=== PATIENT | female | born 1955 | race Caucasian/White ===

== ENCOUNTER → 2018-02-12 09:57 | Outpatient (CLI) | payer OTHER, SELFPAY ==
[2018-02-12 13:06] LABS: BUN 15 mg/dL (7-18); Creatinine, Serum 0.74 mg/dL (0.55-1.02); Glucose 100 mg/dL (74-106)
[2018-02-12 13:07] LABS: ALB/GLOB Ratio 1.1 RATIO (0.9-2.4); AST(SGOT) 42 U/L (15-37); Alanine Aminotransfer ALT/SGPT 43 U/L (13-56); Alkaline Phosphatase 62 U/L (45-117); Anion Gap 9 (5-15); BUN/Creat Ratio 20.1 RATIO (10-20); Calcium,Total 8.9 mg/dL (8.5-10.1); Chloride 108 mmol/L (98-107); Cholesterol 122 mg/dL (200); EST Glomerular Filtration Rate 83 mL/min (>60); Est Glom Filt Rate - Afr Amer 101 mL/min (>60); Globulin 3.5 g/dL (2.2-4.2); High Density Lipoprotein 53 mg/dL; Potassium 4.1 mmol/L (3.5-5.1); Protein, Total 7.5 g/dL (6.4-8.2); Sodium Level 143 mmol/L (136-145); Thyroid Stim Hormone (TSH) 1.03 uIU/mL (0.358-3.74); Triglycerides 85 mg/dL; Very Low Density Lipoprotein 17 mg/dL (5-40)
== END ==
PROVIDERS: Family Provider Family Medicine; PCP Family Medicine; Visit Provider Nurse Practitioner Family
DX: E78.5 Hyperlipidemia, unspecified (principal); R61 Generalized hyperhidrosis
CPT/HCPCS: 36415; 80053; 80061; 84443

== ENCOUNTER → 2019-01-04 09:38 | Outpatient (CLI) | payer MEDICARE, SELFPAY ==
[2019-01-04 09:12] VITALS: BMI 30.9
[2019-01-04 12:40] LABS: ALB/GLOB Ratio 1.1 RATIO (0.9-2.4); AST(SGOT) 35 U/L (15-37); Alanine Aminotransfer ALT/SGPT 36 U/L (13-56); Alkaline Phosphatase 67 U/L (45-117); Anion Gap 4 (5-15); BUN 17 mg/dL (7-18); BUN/Creat Ratio 22.8 RATIO (10-20); Calcium,Total 8.7 mg/dL (8.5-10.1); Chloride 108 mmol/L (98-107); Cholesterol 140 mg/dL (200); Creatinine, Serum 0.75 mg/dL (0.55-1.02); EST Glomerular Filtration Rate 83 mL/min (>60); Est Glom Filt Rate - Afr Amer 100 mL/min (>60); Globulin 3.6 g/dL (2.2-4.2); Glucose 105 mg/dL (74-106); High Density Lipoprotein 62 mg/dL; Potassium 4.2 mmol/L (3.5-5.1); Protein, Total 7.6 g/dL (6.4-8.2); Sodium Level 141 mmol/L (136-145); Triglycerides 124 mg/dL; Very Low Density Lipoprotein 25 mg/dL (5-40)
== END ==
PROVIDERS: Family Provider Family Medicine; PCP Family Medicine; Visit Provider Family Medicine
DX: E78.5 Hyperlipidemia, unspecified (principal)
CPT/HCPCS: 36415; 80053; 80061

== ENCOUNTER → 2019-03-10 09:27 | Outpatient (CLI) | payer MEDICARE, SELFPAY ==
[2019-02-24 15:53] VITALS: BMI 30.9
[2019-03-10 12:37] LABS: Color, Urine Yellow (Yellow); Glucose, Dipstick Normal (Normal); Ketone-Dipstick 5 mg/dl (Negative); Leukocyte Esterase-Dipstick Negative /ul (Negative); Nitrite-Dipstick Negative (Negative); Occult Blood-Urine 150 /ul (Negative); Protein-Dipstick Negative (Negative); Specific Gravity, Urine 1.025 (1.002-1.030); Urine Bilirubin Dipstick Negative (Negative); Urine Clarity Clear (Clear); Urine Urobilinogen Normal (Normal)
== END ==
PROVIDERS: Family Provider Family Medicine; PCP Family Medicine; Visit Provider Family Medicine
DX: N39.9 Disorder of urinary system, unspecified (principal)
CPT/HCPCS: 81002

== ENCOUNTER → 2019-03-29 07:48 | Outpatient (CLI) | payer MEDICARE, SELFPAY ==
[2019-02-24 15:53] VITALS: BMI 30.9
--- NOTE | 2019-03-29 07:51 | CT_ITS ---
STUDY: CT ABDOMEN AND PELVIS WITH AND WITHOUT CONTRAST REASON FOR EXAM: Female, 63 years old. Intermittent gross hematuria for one month. Occasional right-sided pain. History of pulmonary embolus on blood thinners. RADIATION DOSAGE (If Supplied By Facility): CTDIvol = ( 24.75 ) mGy, DLP = ( 2600.50 ) mGycm TECHNIQUE: Transaxial images were obtained from the dome of the diaphragm to the symphysis pubis without oral contrast. 100mL IV Isovue 300 was administered. Sagittal and coronal images were reconstructed. Individualized dose optimization techniques were used for this CT. COMPARISON: November 11, 2006. FINDINGS: The visualized lung bases are unremarkable. The visualized portions of the heart are within normal limits. Normal liver. Normal gallbladder and extrahepatic biliary system. There are multiple benign calcified granulomata of the spleen. Normal pancreas. Normal bilateral adrenal glands. Normal right kidney. No hydronephrosis. 6 x 3 mm nonobstructing midpole left renal calculus. Normal visualized stomach. Normal small intestine. Colonic diverticulosis with most prominent involvement of the sigmoid colon. The appendix is visualized and appears normal. Normal abdominal aorta. Normal inferior vena cava. Normal retroperitoneum. No intra-abdominal free air. No free fluid collections. Normal urinary bladder. Uterus grossly normal. No adnexal masses seen. Normal abdominal wall. L5-S1 disc space narrowing with vacuum disc and endplate sclerosis. CT/CT Abd/Pelvis W/WO Contrast IMPRESSION: No acute findings in the abdomen or pelvis. 6 x 3 mm nonobstructing left renal calculus. Colonic diverticulosis. No intra-abdominal free air or free fluid collections. Normal appendix. Electronically Signed: Sammy Stone MD at 3:34 EDT , Service support ,
[2019-03-29 08:05] LABS: CREATININE FINGERSTICK 0.8 mg/dL (0.55-1.02); EGFR FINGERSTICK > 60.0000 mL/min (>60)
== END ==
PROVIDERS: Family Provider Family Medicine; PCP Family Medicine; Referring Provider Urology; Visit Provider Urology
DX: R31.9 Hematuria, unspecified (principal)
CPT/HCPCS: 74178; Q9967

== ENCOUNTER → 2019-05-26 06:03 | Outpatient (CLI) | payer MEDICARE, SELFPAY ==
[2019-02-24 15:53] VITALS: BMI 30.9
== END ==
PROVIDERS: Family Provider Family Medicine; PCP Family Medicine; Referring Provider Urology; Visit Provider Urology
DX: R69 Illness, unspecified (principal)

== ENCOUNTER 2019-05-27 10:30 | Day surgery (SDC) | payer MEDICARE, SELFPAY ==
[2019-02-24 15:53] VITALS: BMI 30.9
[2019-05-27] VITALS (7 sets, daily range): BP systolic 112–132; BP diastolic 72–82; PULSE 72–93; RESP 16; TEMP 36.3–36.4; O2SAT 92–98; BMI 31.1
[2019-05-27] MEDS: Lactated Ringers 1,000 ML 75 ML IV (10:57)
[2019-05-27] MEDS: Cefazolin 2 GM in 0.9% Normal Saline 100 ML IV (12:20)
--- NOTE | 2019-05-27 12:23 | DCINST_ITS ---
Discharge Diet: Light diet - advance as tolerated Discharge Activity: Return to Normal Activity Call your doctor if your incision/area has: Continuous Slow Oozing, Sudden Increased Bleeding, Increased Pain/ Swelling, Increased Redness Call your doctor if you observe: Fever of 101 or Higher Suture Line Care: Avoid Pulling/Pushing, Avoid Pinching/Bending Instructions: Treating Kidney Stones: Ureteroscopic Stone Removal Additional Instructions: resume Eliquis tomorrow. Allergies/Adverse Reactions: Allergies metaxalone [From Skelaxin] Allergy (Intermediate, Verified 05/27/19 10:40) Hives levofloxacin [From Levaquin] Allergy (Unknown, Verified 05/27/19 10:40) irregular heart rate moxifloxacin [From Avelox] Allergy (Unknown, Verified 05/27/19 10:40) Unknown amoxicillin [From Augmentin] Allergy (Verified 05/27/19 10:40) numbness around lips clavulanic acid [From Augmentin] Allergy (Verified 05/27/19 10:40) numbness around lips Medications to take at Discharge apixaban 2.5 mg tablet 2.5 mg PO BID #180 tab 02/09/19 Ibuprofen [Advil] 200 mg PO PRN PRN 05/23/19 Lisinopril [Prinivil] 5 mg PO QHS 05/23/19 Loratadine 10 mg PO DAILY PRN 05/23/19 Propranolol HCl 20 mg PO DAILY 05/23/19 Rosuvastatin Calcium 5 mg PO QHS 05/23/19 Cephalexin [Keflex] 500 mg PO Q8 #10 cap 05/27/19 Oxycodone HCl/Acetaminophen [Percocet 5/325] 1 tab PO Q4H PRN PRN 7 Days #14 tab 05/27/19 The following prescriptions were given: Cephalexin [Keflex] 500 mg PO Q8 #10 cap Prescription Printed Oxycodone HCl/Acetaminophen [Percocet 5/325] 1 tab PO Q4H PRN PRN 7 Days #14 tab PRN Reason: Pain Prescription Printed Primary Care Physician: Agustin Antonio DO [Primary Care Provider] - Test Results: Test results from this visit will be discussed in further detail at your follow- up appointment, if applicable. Please Follow Up With: Martin Cosme MD When: please call to make an appointment.
--- NOTE | 2019-05-27 13:04 | PCM.OPRPT ---
Report of Operation Date of Procedure: 05/27/19 Pre-Operative Diagnosis: Left renal calculi Post-Operative Diagnosis: The same Surgery/Procedure Performed:: Cystoscopy, left retrograde pyelogram, interpretation of fluoroscopic images, left ureteroscopy laser lithotripsy of stone, and left stent placement Description of Surgical Findings:: Indication this is a 63-year-old female who recently presented to the emergency room with severe left renal colic apparently she had passed a small fragments when I she saw me in the office. In reviewing her CAT scan she had another 6 mm stone in the left kidney recommended we proceed with treatment of the stone with ureteroscopy and laser lithotripsy. Of medical importance is the fact that she has a history of DVT and a pulmonary embolism in the past and currently is taken Eliquis to prevent further problems. We bridged her off the Eliquis with Lovenox shots. She is been off her Levaquin Eliquis and Lovenox now and presents for ureteroscopy and laser lithotripsy we talked about the risk of the procedure including the risk of general anesthesia, risk of bleeding, infection, failure to treat the stone, spasms and pain with the stone fragments passing or with the stent, the risk of bleeding, she is good to resume her Eliquis immediately after this procedure but of course is always risk of pulmonary embolism. After reviewing the benefits and risks of the procedure she signed the consent form all her questions were answered and we proceeded. 63-year-old female was taken back to operating room 3 she underwent general anesthesia and was placed supine on the table and then she was placed in dorsolithotomy position. The urethra vaginal area and perineum was prepped and draped in the usual sterile fashion. I then used a well-lubricated 21 Wallisian rigid cystourethroscope went into the bladder and inspected the urethra which was normal, very slight cystocele but not significant, the trigone was normal, the left ureteral orifice was identified and normal, the right ureteral orifice was identified and normal, and then inspected the bladder and the entire bladder there were no mucosal lesions no stones or tumors within the bladder. I then identified the left ureteral orifice and use a Pollack catheter and a Glidewire, 0.038 Glidewire to cannulate the Pollick catheter. I advanced the Pollack catheter over the Glidewire into the proximal ureter and then performed a retrograde pyelogram, I could see the contrast going up the ureter all the way up to the kidney and the contrast filled the kidney could identify the stone in the kidney under fluoroscopic guidance and could see the stone under fluoroscopy with a retrograde plaque pyelogram. After performance of the retrograde pyelogram then I backloaded the Pollick catheter over a wire and placed the wire back up into the left kidney and I backloaded the cystoscope off the wire left the wire in place then we backloaded the ureteroscope onto the wire. As we are doing this the wire did fall out of the left ureter so had to go back in with the flexible ureteroscope but fortunately was able to get the wire back into the ureter without any difficulties advanced a wire up in the kidney then using a well-lubricated 8 Wallisian flexible ureteroscope was able to get into the distal ureter and work my way all the way up the ureter and all the way up to the kidney once in the kidney I inspected the upper pole midpole and lower pole the kidney identified the stone fragment in the midpole of the left kidney. I then engage the calyx with the flexible ureteroscope used the 270 ?m laser fiber energy settings were 6 Hz and 0.6 J, and proceeded with laser lithotripsy. As the stone was being lasered I then increase the hertz to 15 Hz and then dusted the stone into little tiny pieces that should all pass and the round no major fragments were then seen in the kidney I inspected again the upper pole midpole lower pole of the kidney no major fragments within the kidney or the pelvis I worked my way all the way down the ureter and there was no injury or trauma to the ureter and no major fragments along the course of the ureter. Then I drained the bladder with the cystoscope I cannulated the left ureteral orifice with a Glidewire advanced up to the kidney and then over the guide wire I advanced a 6 Wallisian by 24 cm stent. Once a stent was in good position using a pusher then we pulled the wire and the stent coiled in the kidney and the bladder in good position we left the string on the stent for easy extraction in a few days the patient's anesthetic was reversed her bladder was emptied she was cleaned and transferred to the stretcher in good condition and she was taken back to the PACU extubated. I went and then spoke to her family treatment of the stones very successful left the stent and she will be given prescriptions for antibiotics and some mild pain medicine for over the weekend. She will call for an appointment next week and to remove the stent. Type of Anesthesia:: General Drains: stent left side - Admit VTE Documentation VTE Present on Admission: No VTE Mechan Device Prophylaxis: SCD's
[2019-05-27] MEDS: Ketorolac 15 MG/ML Vial IV (14:10)
== END 2019-05-27 15:20 | disposition home or self-care (01) ==
LOC: SDC 10:32 → AC 10:34
PROVIDERS: Family Provider Family Medicine; PCP Family Medicine; Referring Provider Urology; Visit Provider Urology
PROC: 0TJ98ZZ Inspection of Ureter, Via Natural or Artificial Opening Endoscopic (ICD-10-PCS; CPT 52352; principal; 2019-05-27 12:10)
DX: N20.0 Calculus of kidney (principal); R31.0 Gross hematuria; I10 Essential (primary) hypertension; E78.5 Hyperlipidemia, unspecified; Z87.442 Personal history of urinary calculi; Z86.711 Personal history of pulmonary embolism; Z86.718 Personal history of other venous thrombosis and embolism; Z79.01 Long term (current) use of anticoagulants; Z79.899 Other long term (current) drug therapy; Z87.891 Personal history of nicotine dependence
CPT/HCPCS: 52356; 76000; J7120; C2617; J2405

== ENCOUNTER → 2019-06-06 10:30 | Outpatient (CLI) | payer MEDICARE, SELFPAY ==
[2019-05-27 10:46] VITALS: BMI 31.1
== END ==
PROVIDERS: Family Provider Family Medicine; PCP Family Medicine; Referring Provider Urology; Visit Provider Urology
DX: R30.0 Dysuria (principal)
CPT/HCPCS: 87077; 87086; 87088; 87186

== ENCOUNTER → 2019-10-04 15:21 | Outpatient (CLI) | payer MEDICARE, SELFPAY ==
[2019-08-31 08:40] VITALS: BMI 31.1
--- NOTE | 2019-10-04 15:25 | BD_ITS ---
STUDY: DUAL ENERGY X-RAY ABSORPTIOMETRY / DXA REASON FOR EXAM: Female, 63 years old. 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 COMPARISON: None. FINDINGS: Lumbar Spine (L1-L4): g/cm2 (1.300) / T-score (1.0) / Z-score (2.6) Findings are suggestive of normal bone density with a low fracture risk. Left Femur Total: g/cm2 (1.040) / T-score (0.3) / Z-score (1.5) Left Femoral Neck: g/cm2 (0.927) / T-score (-0.8) / Z-score (0.7) Right Femur Total: g/cm2 (1.091) / T-score (0.7) / Z-score (1.9) Right Femoral Neck: g/cm2 (0.987) / T-score (-0.4) / Z-score (1.1) BD/Dexa Bone Density Study IMPRESSION: The patient is considered normal as outlined below according to World Mo[employer] Organization (WHO) criteria with a low fracture risk. Reference Information: The T-score is the number of standard deviations above or below the standard which is normal for young adults at their peak bone mineral density. The World Health Organization (WHO) interprets the T-scores as follows: Above -1 Normal bone density Between -1 and -2.5 Osteopenia Equal to / or below -2.5 Osteoporosis As a practical clinical guideline, osteopenia may be graded as follows: Mild -1 through -1.5 Moderate -1.6 through -2.0 Severe -2.1 through -2.4 The Z-score is the number of standard deviations above or below age-matched controls. A Z-score of less than -1.5 would be considered abnormal. References: 1. NIH Osteoporosis and Related Bone Diseases http://www.osteo.org 2. International Society for Clinical Densitometry http://www.iscd.org 3. National Osteoporosis Foundation http://www.nof.org Electronically Signed: Stan Negron, at 14:12 EST , Service support ,
--- NOTE | 2019-10-04 15:39 | BI_ITS ---
MAMMOGRAPHY - BILATERAL SCREENING REASON FOR EXAM: Female, 63 years old. Routine annual screening examination. PERTINENT HISTORY: Non-contributory. TECHNIQUE: Digital bilateral breast ira (3D mammographic acquisition) in the CC and MLO projections. 2-D mediolateral oblique (MLO) and craniocaudad (CC) views of both breasts were obtained. CAD: Full Field Digital Mammography with Computer Added Detection was performed. COMPARISON: None. Baseline examination. FINDINGS: Breast Composition: The breasts are heterogeneously dense, which may obscure small masses. There are no dominant masses or suspicious calcifications. Small benign-appearing bilateral axillary lymph nodes. No other significant abnormalities are identified. BI/SCREEN MAMM (CAD) W/IRA BILAT IMPRESSION: Negative screening mammogram. Yearly followup mammogram recommended. (A) ASSESSMENT CATEGORY: BIRADS Category 2: Benign. A letter regarding these results will be sent to the patient by the facility within 30 days. Approximately 10% of breast cancers are not detected by mammography. A normal mammogram should not delay biopsy of a clinically suspicious abnormality. [id number] Electronically Signed: Stan Negron, at 8:28 EST , Service support ,
== END ==
PROVIDERS: PCP Family Medicine; Referring Provider Family Medicine; Visit Provider Nurse Practitioner Women's Health
DX: Z78.0 Asymptomatic menopausal state (principal); Z12.31 Encounter for screening mammogram for malignant neoplasm of breast
CPT/HCPCS: 77063; 77067; 77080

== ENCOUNTER → 2020-01-18 09:23 | Outpatient (CLI) | payer MEDICARE, SELFPAY ==
[2020-01-03 08:50] VITALS: BMI 31.1
[2020-01-18 11:00] LABS: ALB/GLOB Ratio 1.2 RATIO (0.9-2.4); AST(SGOT) 42 U/L (15-37); Alanine Aminotransfer ALT/SGPT 53 U/L (13-56); Albumin, Serum 4.2 g/dL (3.2-5.0); Alkaline Phosphatase 49 U/L (45-117); Anion Gap 9 (5-15); BUN 12 mg/dL (7-18); Chloride 108 mmol/L (98-107); Cholesterol 167 mg/dL (200); EST Glomerular Filtration Rate 76 mL/min (>60); Est Glom Filt Rate - Afr Amer 92 mL/min (>60); Globulin 3.6 g/dL (2.2-4.2); Glucose 129 mg/dL (74-106); High Density Lipoprotein 71 mg/dL; Protein, Total 7.8 g/dL (6.4-8.2); Sodium Level 142 mmol/L (136-145); Triglycerides 187 mg/dL; Very Low Density Lipoprotein 37 mg/dL (5-40)
== END ==
PROVIDERS: PCP Family Medicine; Referring Provider Family Medicine; Visit Provider Family Medicine
DX: I10 Essential (primary) hypertension (principal); E78.5 Hyperlipidemia, unspecified
CPT/HCPCS: 36415; 80053; 80061

== ENCOUNTER → 2021-01-02 08:37 | Outpatient (CLI) | payer MEDICARE, SELFPAY ==
[2020-05-28 15:21] VITALS: BMI 31.1
--- NOTE | 2021-01-02 08:39 | BI_ITS ---
MAMMOGRAPHY - BILATERAL SCREENING REASON FOR EXAM: Female, 65 years old. Routine annual screening examination. PERTINENT HISTORY: Non-contributory. TECHNIQUE: Digital bilateral breast ira (3D mammographic acquisition) in the CC and MLO projections. 2-D mediolateral oblique (MLO) and craniocaudad (CC) views of both breasts were obtained. CAD: Full Field Digital Mammography with Computer Added Detection was performed. COMPARISON: Comparison is made with prior study dated 10/04/2019. FINDINGS: Breast Composition: The breasts are heterogeneously dense, which may obscure small masses. There are no dominant masses or suspicious calcifications. Stable small benign-appearing bilateral axillary lymph nodes. No other significant abnormalities are identified. There has been no significant change since the prior study. BI/SCRN MAMM (CAD)W/IRA BILAT IMPRESSION: Stable bilateral screening mammogram. Yearly follow-up mammogram recommended. (A) ASSESSMENT CATEGORY: BIRADS Category 2: Benign. A letter regarding these results will be sent to the patient by the facility within 30 days. Approximately 10% of breast cancers are not detected by mammography. A normal mammogram should not delay biopsy of a clinically suspicious abnormality. [id number] Electronically Signed: Stan Negron MD at 9:37 EDT , Service support ,
== END ==
PROVIDERS: PCP Family Medicine; Referring Provider Nurse Practitioner Women's Health; Visit Provider Nurse Practitioner Women's Health
DX: Z12.31 Encounter for screening mammogram for malignant neoplasm of breast (principal)
CPT/HCPCS: 77063; 77067

== ENCOUNTER → 2021-01-16 10:06 | Outpatient (CLI) | payer MEDICARE, SELFPAY ==
[2021-01-16 09:42] VITALS: BMI 32.8
[2021-01-16 12:59] LABS: ALB/GLOB Ratio 1.1 RATIO (0.9-2.4); AST(SGOT) 39 U/L (15-37); Alanine Aminotransfer ALT/SGPT 48 U/L (13-56); Alkaline Phosphatase 68 U/L (45-117); Anion Gap 5 (5-15); BUN 15 mg/dL (7-18); BUN/Creat Ratio 19.8 RATIO (10-20); Calcium,Total 9.1 mg/dL (8.5-10.1); Chloride 106 mmol/L (98-107); Cholesterol 151 mg/dL (200); Creatinine, Serum 0.76 mg/dL (0.55-1.02); EST Glomerular Filtration Rate 81 mL/min (>60); Est Glom Filt Rate - Afr Amer 98 mL/min (>60); Globulin 3.8 g/dL (2.2-4.2); Glucose 109 mg/dL (74-106); High Density Lipoprotein 70 mg/dL; Potassium 4.5 mmol/L (3.5-5.1); Protein, Total 7.8 g/dL (6.4-8.2); Sodium Level 140 mmol/L (136-145); Thyroid Stim Hormone (TSH) 1.27 uIU/mL (0.358-3.74); Triglycerides 147 mg/dL; Very Low Density Lipoprotein 29 mg/dL (5-40)
== END ==
PROVIDERS: PCP Family Medicine; Referring Provider Family Medicine; Visit Provider Family Medicine
DX: I10 Essential (primary) hypertension (principal); E78.5 Hyperlipidemia, unspecified
CPT/HCPCS: 36415; 80053; 80061; 84439; 84443

== ENCOUNTER 2021-05-03 10:00 | Outpatient (RCR) | payer MEDICARE, SELFPAY ==
[2021-02-13 09:17] VITALS: BMI 32.8
[2021-04-04 08:41] VITALS: BMI 32.8
--- NOTE | 2021-04-08 12:32 | HP.PTEVAL_ITS ---
Patient's Visit Information JAMIE KEY is a 65 year old F referred to Physical Therapy by MER Bhardwaj with a diagnosis of R greater trochanteric bursitis, SI joint dysfunction. Date of Evaluation: 04/05/21 Physical Therapist: Jose De Paz DPT - Visit Plan Frequency: 1-2x /Week Duration: 6 Weeks Plan: Start with core stability, slight lumbar extension progression (may have to divert if causing increased symptoms). May use US to R SI joint if needed. HS, IT band and hip flexor stretching. - Subjective Pt. is here today for her initial evaluation with diagnosis of R greater trochanteric bursitis and SI joint joint dysfunction. Pt. reports pain for about 6 months, with worsening over this time. She did have an injection in her R greater trochanter which helped, but pain is starting to come back. Pt. is still having pain at R SI region as well. Increased pain: bending, getting up bent position. Pt. denies N/T in either LE. Pt. is active, but not as active as previously secondary to pain. Decreases pain: injection, rest. Pt. has not tried any exercises yet for her symptoms. Pt. is sleeping okay. Pt. has greatest pain with rolling in bed, getting up and down. She is hopeful to reduce symptoms in order to get back to all recreational activities without limitations. - Pain R hip Pain Intensity (Out of 10): 3 Pain Intensity Range: 1, 10 lumbar spine Pain Intensity (Out of 10): 3 Pain Intensity Range: 1, 10 - Objective POSTURE: Pt. has generalized flexed posture. PALPATION: Pt. has some mild tenderness along L2-S1 region and along B SI joint (R worse than L). NEURO: Pt. has normal sensation in BLEs, Pt. has normal DTR of BLEs. ROM: LUMBAR SPINE: fl exion: flexion nil loss NE, ext mod loss increase NW, SB R min loss increase NW, SB L nil loss NE, rotation R min/nil loss NE, rotation L min loss increase NW. Pt. has good B hip ROM without increase in symptoms, except hip ER/IR at end ranges results in R SI pain on R side, no hip pain with ROM on L side. MMT: Pt. has overall decent strength, no signs of myotomal weakness noted. Pt. has general strength of 4+/5 throughout BLEs, except 4/5 with hip abd, ext and hip ER bilaterally. Core strenght- poor+. GAIT: Pt. has general flexed posture, mild increase in lateral sway. Pt. has B decreased step length. STAIRS: Pt. is able to complete without LOB with 1 HR with reciprocal pattern. Marked lateral hip weakness. - Special Tests L/S Slump test left side: Negative L/S Slump test right side: Negative L/S Left Straight Leg Raise: Negative L/S Right Straight Leg Raise: Negative Lumbar Standing: Flexion - Mechanical Response: No effect Lumbar Standing: Flexion - Symptoms During Testing: No effect Lumbar Standing: Flexion - Symptoms After Testing: No effect Comments:: mild increase with return Lumbar Standing: Extension - Mechanical Response: No effect Lumbar Standing: Extension - Symptoms During Testing: No effect Lumbar Standing: Extension - Symptoms After Testing: No effect Comments:: tightness, mild reduction in flexion afterwards. Lumbar Standing: Right Side Glides - Mechanical Response: No effect Lumbar Standing: Right Side [place] - Symptoms During Testing: No effect Lumbar Standing: Right Side [place] - Symptoms After Testing: No effect Lumbar Standing: Left Side [place] - Mechanical Response: No effect Lumbar Standing: Left Side [place] - Symptoms During Testing: No effect Lumbar Standing: Left Side [place] - Symptoms After Testing: No effect Lumbar Lying: Flexion - Mechanical Response: No effect Lumbar Lying: Flexion - Symptoms During Testing: No effect Lumbar Lying: Flexion - Symptoms After Testing: No effect Lumbar Lying: Extension - Mechanical Response: No effect Lumbar Lying: Extension - Symptoms During Testing: No effect Lumbar Lying: Extension - Symptoms After Testing: No effect Comments:: stiffness with lumbar extension R Hip Scour: Negative R Hip Quadrant - Intraarticular Pathology: Negative R Hip ROBBIN - Intraarticular Pathology: Negative R Hip FADDIR - Labrum: Negative Comment: mild increase in R SI pain with end range ROBBIN - Goals Goal 1:: LTG: Pt. to be I with HEP for core stability, hip flexor stretching, HS stretching and IT band stretching. Goal Time Frame: 4-6 Weeks Goal 2:: STG: Pt. to be able have full ROM of lumbar spine without increase in symptoms. Goal Time Frame: 2 Weeks Goal 3:: LTG: Pt. to have full ROM or B hips with decreased tissue resistance of hip flexor, HS and TFL muscle groups. Goal Time Frame: 4-6 Weeks Goal 4:: LTG: Pt. to have increased BLE and core strength increased to at least 5-/5 throughout. Goal Time Frame: 4-6 Weeks Goal 5:: LTG: Pt. to ambulate unlimited distances without increase in symptoms. Goal Time Frame: 2-4 Weeks - Rehabilitation Potential Physical Therapy Diagnosis: Pt. has signs and symptoms consistent with R greater trochanteric bursitis and SI dysfunction. Pt. did not have a positive gilletes test for her SI, but did have symptoms with back bending and with rotational motions. I would like her to work on core stability and some pelvic mobility to reduce stress applied to SI joint. I want her to work on hip/core stability as well. Rehabilitation Potential: Good - Anticipated Interventions Patient/Client Instruction: Educate patient on: Condition, Plan of Care, Risk Factors, Benefits of Fitness Program For the Purpose of:: To foster healthy habits, To improve decision making, To facilitate caregiver knowledge, To improve self management, To prevent re- injury, To improve ability to perform tasks related to life management Therapeutic Exercise to Include: Strength training, Power training, Postural training, Flexibilty training, Passive ROM, Active ROM For the Purpose of:: To decrease pain, To decrease swelling/inflammation, To increase ROM, To improve nutrient delivery to tissue, To increase oxygenation perfusion, To improve muscle performance and motor function, To improve ability to perform ADL's, To improve health of tissue, To decrease soft tissue restriction, To increase flexibility/ROM Manual Therapy Techniques to Include: Mobilization, Passive ROM, Soft tissue mobilization For the Purpose of:: To decrease pain, To decrease swelling/inflammation, To increase ROM, To improve nutrient delivery to tissue, To increase oxygenation perfusion Ultrasound (thermal/non thermal): Yes For the Purpose of:: To decrease pain, To decrease swelling/inflammation, To increase ROM, To improve nutrient delivery to tissue, To increase oxygenation perfusion Thank you for the opportunity to evaluate your patient. For Medicare and Medicare HMO plans, please review the plan of care and approve it. It will need to be FAXED BACK to us at [phone] for Medicare purposes. For Medicare only, by signing this I certify the plan of care. Please let me know if there are questions or concerns regarding this plan of care. Physician Signature: Date:
--- NOTE | 2021-05-03 12:51 | HP.PTREVAL_ITS ---
MER Bhardwaj, It has been my pleasure to treat JAMIE KEY over the last 6 visits for R greater trochanteric bursitis, SI joint dysfunction. Please see the progress note below for an update on the physical therapy plan of care! Subjective: Pt. reports having some similar soreness in her R posterior/lateral thigh and lumbar spine/SI joint on R side. Pt. reports no major issues, but still having trouble with getting up/down. Objective/Function: Pt. had good response with MYKE this date over a bar. Pt. had a centralization of symptoms this date, but did have slight increase in symptoms of her lumbar spine, again this reduced with increased extension. I would like her to progress extension progression. She showed good tolerance today. She is to work on consistent extension progression for 1 week then come back to PT. Plan Plan: She is to work on consistent extension progression for 1 week then come back to PT. Balance/Gait/Functional tests - Balance/Special Test Scores Lower Extremity Functional Score: 49 Goals Goal 1:: LTG: Pt. to be I with HEP for core stability, hip flexor stretching, HS stretching and IT band stretching. Goal Time Frame: 4-6 Weeks Goal Progress: Progressing Goal 2:: STG: Pt. to be able have full ROM of lumbar spine without increase in symptoms. Goal Time Frame: 2 Weeks Goal Progress: Progressing Goal 3:: LTG: Pt. to have full ROM or B hips with decreased tissue resistance of hip flexor, HS and TFL muscle groups. Goal Time Frame: 4-6 Weeks Goal Progress: Progressing Goal 4:: LTG: Pt. to have increased BLE and core strength increased to at least 5-/5 throughout. Goal Time Frame: 2-4 Weeks Goal Progress: Progressing Goal 5:: LTG: Pt. to ambulate unlimited distances without increase in symptoms. Goal Time Frame: 2-4 Weeks Goal Progress: Progressing Anticipated Interventions Patient/Client Instruction: Educate patient on: Condition, Plan of Care, Risk Factors, Benefits of Fitness Program For the Purpose of:: To foster healthy habits, To improve decision making, To facilitate caregiver knowledge, To improve self management, To prevent re- injury, To improve ability to perform tasks related to life management Therapeutic Exercise to Include: Strength training, Power training, Postural training, Flexibilty training, Passive ROM, Active ROM For the Purpose of:: To decrease pain, To decrease swelling/inflammation, To increase ROM, To improve nutrient delivery to tissue, To increase oxygenation perfusion, To improve muscle performance and motor function, To improve ability to perform ADL's, To improve health of tissue, To decrease soft tissue restriction, To increase flexibility/ROM Manual Therapy Techniques to Include: Mobilization, Passive ROM, Soft tissue mobilization For the Purpose of:: To decrease pain, To decrease swelling/inflammation, To increase ROM, To improve nutrient delivery to tissue, To increase oxygenation perfusion Ultrasound (thermal/non thermal): Yes For the Purpose of:: To decrease pain, To decrease swelling/inflammation, To increase ROM, To improve nutrient delivery to tissue, To increase oxygenation perfusion Please do not hesitate to contact me at [phone] by phone or if you have questions or concerns regarding this new plan of care! Sincerely, KIRK CortésT
--- NOTE | 2021-08-19 10:24 | HP.PTDCNRP_ITS ---
JAMIE KEY was seen in my office for initial evaluation on 04/05/21. The following Plan of Care was established for this patient: Initial Frequency: 1-2x /Week Initial Duration: 6 Weeks Patient/Client Instruction: Educate patient on: Condition, Plan of Care, Risk Factors, Benefits of Fitness Program For the Purpose of:: To foster healthy habits, To improve decision making, To facilitate caregiver knowledge, To improve self management, To prevent re- injury, To improve ability to perform tasks related to life management Therapeutic Exercise to Include: Strength training, Power training, Postural training, Flexibilty training, Passive ROM, Active ROM For the Purpose of:: To decrease pain, To decrease swelling/inflammation, To increase ROM, To improve nutrient delivery to tissue, To increase oxygenation perfusion, To improve muscle performance and motor function, To improve ability to perform ADL's, To improve health of tissue, To decrease soft tissue restriction, To increase flexibility/ROM Manual Therapy Techniques to Include: Mobilization, Passive ROM, Soft tissue mobilization For the Purpose of:: To decrease pain, To decrease swelling/inflammation, To increase ROM, To improve nutrient delivery to tissue, To increase oxygenation perfusion Ultrasound (thermal/non thermal): Yes For the Purpose of:: To decrease pain, To decrease swelling/inflammation, To increase ROM, To improve nutrient delivery to tissue, To increase oxygenation perfusion This patient was last seen in our office 05/03/21. Pertinent comments regarding their Physical therapy will appear below: Pt. was seen for her SI joint pain. At our last visit she was doing well. Pt. called in to say she did not need PT. Pt. has not been seen in several months and will be DC from PT this date. At this point I will be discontinuing this patient from physical therapy. I would be happy to see this patient again in the future if found appropriate by the physician. Thank you! Jose De Paz, DPT Balance/Gait/Functional tests - Balance/Special Test Scores Lower Extremity Functional Score: 49
== END 2021-05-03 19:00 | disposition home or self-care (01) ==
LOC: PT 10:00
PROVIDERS: PCP Family Medicine; Referring Provider Physician Assistant; Visit Provider Physician Assistant
DX: M70.61 Trochanteric bursitis, right hip (principal); M53.3 Sacrococcygeal disorders, not elsewhere classified
CPT/HCPCS: 97110; 97161; 97164

== ENCOUNTER 2021-12-25 15:40 | Outpatient (CLI) | payer MEDICARE, SELFPAY ==
[2021-12-25 16:50] LABS: Absolute Lymphocyte Count 1.72 X10^3/uL (0.83-4.51); Absolute Neutrophil Count 3.1 X10^3/uL (2.0-7.7); Basophil# 0.02 X10^3/uL; Basophil% 0.4 % (0-1); Eosinophil# 0.07 X10^3/uL; Eosinophils% 1.3 % (0-5); Hematocrit 41.9 % (37-47); Lymphocyte # 1.72 X10^3/ul (0.83-4.51); Lymphocyte % 31.9 % (19-41); Mean Corp Hgb Conc 33.4 g/dL (32-36); Mean Corpuscular Hgb 32.3 pg (27.0-32.0); Mean Corpuscular Volume 96.8 fL (81-99); Mean Platelet Vol. 10.7 fl (6.2-12.0); Monocyte# 0.45 X10^3/uL; Monocyte% 8.3 % (0-10); NRBC Flagged by Analyzer 0 % (0-5); Neutrophil # 3.12 X10^3/uL (2.7-7.7); Neutrophil % 57.9 % (47-70); Platelet Count 269 K/mm3 (150-450); RBC Distribution Width CV 12.7 % (11.6-14.6); RBC Distribution Width SD 45.7 fl (35.1-43.9); Red Blood Count 4.33 M/mm3 (4.2-5.4); White Blood Count 5.4 K/mm3 (4.4-11.0)
[2021-12-25 17:06] LABS: ALB/GLOB Ratio 1.2 RATIO (0.9-2.4); AST(SGOT) 45 U/L (15-37); Alanine Aminotransfer ALT/SGPT 47 U/L (13-56); Albumin, Serum 4.1 g/dL (3.2-5.0); Alkaline Phosphatase 58 U/L (45-117); Anion Gap 3 (5-15); BUN 16 mg/dL (7-18); Calcium,Total 8.9 mg/dL (8.5-10.1); Chloride 108 mmol/L (98-107); Cholesterol 134 mg/dL (200); EST Glomerular Filtration Rate 76 mL/min (>60); Est Glom Filt Rate - Afr Amer 92 mL/min (>60); Globulin 3.4 g/dL (2.2-4.2); Glucose 98 mg/dL (74-106); High Density Lipoprotein 55 mg/dL; Potassium 3.8 mmol/L (3.5-5.1); Protein, Total 7.5 g/dL (6.4-8.2); Sodium Level 141 mmol/L (136-145); Triglycerides 135 mg/dL; Very Low Density Lipoprotein 27 mg/dL (5-40)
== END 2021-12-25 23:59 | disposition home or self-care (01) ==
PROVIDERS: PCP Family Medicine; Referring Provider Family Medicine; Visit Provider Family Medicine
DX: I10 Essential (primary) hypertension (principal)
CPT/HCPCS: 36415; 80053; 80061; 85025

== ENCOUNTER → 2022-01-20 | Outpatient (CLI) | payer MEDICARE, SELFPAY ==
--- NOTE | 2022-01-20 07:57 | BI_ITS ---
MAMMOGRAPHY - BILATERAL SCREENING REASON FOR EXAM: Female, 66 years old. Routine annual screening examination. PERTINENT HISTORY: Non-contributory. TECHNIQUE: Digital bilateral breast ira (3D mammographic acquisition) in the CC and MLO projections. 2-D mediolateral oblique (MLO) and craniocaudad (CC) views of both breasts were obtained. CAD: Full Field Digital Mammography with Computer Added Detection was performed. COMPARISON: Comparison is made with prior study dated 01/02/2021 and 10/04/2019. FINDINGS: Breast Composition: The breasts are heterogeneously dense, which may obscure small masses. There are no dominant masses or suspicious calcifications. Stable benign-appearing bilateral axillary lymph nodes. No other significant abnormalities are identified. There has been no significant change since the prior study. BI/SCRN MAMM (CAD)W/IRA BILAT IMPRESSION: Stable bilateral screening mammogram. Yearly follow-up mammogram recommended. (A) ASSESSMENT CATEGORY: BIRADS Category 2: Benign. A letter regarding these results will be sent to the patient by the facility within 30 days. Approximately 10% of breast cancers are not detected by mammography. A normal mammogram should not delay biopsy of a clinically suspicious abnormality. [id number] Electronically Signed: Stan Negron MD at 9:07 EDT ,
== END | disposition home or self-care (01) ==
LOC: OPBI 07:56
PROVIDERS: PCP Family Medicine; Visit Provider Nurse Practitioner Women's Health
DX: Z12.31 Encounter for screening mammogram for malignant neoplasm of breast (principal)
CPT/HCPCS: 77063; 77067

== ENCOUNTER 2023-01-07 07:02 | Day surgery (SDC) | payer MEDICARE, SELFPAY ==
[2023-01-07] VITALS (8 sets, daily range): BP systolic 101–131; BP diastolic 62–78; PULSE 64–74; RESP 16–18; TEMP 36.2–36.6; O2SAT 93–99; BMI 31.8
--- NOTE | 2023-01-07 07:21 | HP.PCM_ITS ---
HPI - General General Date of Admission: 01/07/23 HPI Narrative JAMIE KEY, is a 67 F who presents for screening colonoscopy. Patient last colonoscopy was over 10 years ago normal per patient. Patient denies any chronic abdominal pain/nausea/vomiting/reflux. Patient's bowel moods daily denies any blood. Patient denies any family history of colon cancer. Patient is on Eliquis due to history of PE/DVT has been held since Thursday night. [facility] Medical History (Updated 01/02/23 @ 08:40 by Dalia Patino) Cancer Former smoker High cholesterol History of diverticulitis History of echocardiogram History of pulmonary embolism History of stress test History of ulceration Hyperlipidemia Pulmonary embolism Wears glasses Home Medications ibuprofen 200 mg tablet 200 mg PO PRN PRN Pain 05/23/19 [History Last Taken Unknown] loratadine 10 mg tablet 10 mg PO DAILY PRN Allergies 05/23/19 [History Last Taken Unknown] cholecalciferol (vitamin D3) 25 mcg (1,000 unit) capsule 25 mcg PO DAILY 01/16/21 [History Last Taken Unknown] apixaban 2.5 mg tablet (Eliquis) 2.5 mg PO BID #180 tabs 12/25/21 [Rx Last Taken Unknown] propranolol 20 mg tablet 20 mg PO TID #270 tabs 08/21/22 [Rx Last Taken Unknown] rosuvastatin 5 mg tablet 5 mg PO QHS #90 tabs 11/05/22 [Rx Last Taken Unknown] Allergy/AdvReac Type Severity Reaction Status Date / Time metaxalone [From Skelaxin] Allergy Intermediate Hives Verified 01/07/23 07:24 levofloxacin [From Levaquin] Allergy Unknown irregular Verified 01/07/23 07:24 heart rate moxifloxacin [From Avelox] Allergy Unknown Hives Verified 01/07/23 07:24 amoxicillin [From Augmentin] Allergy numbness Verified 01/07/23 07:24 around lips clavulanic acid Allergy numbness Verified 01/07/23 07:24 [From Augmentin] around lips Family History Sister Lung cancer Bladder cancer Surgical History History of arthroscopy of right knee History of cardiac cath History of carpal tunnel surgery of right wrist History of colonoscopy History of hysterectomy History of renal calculi Social History number of children: 2 current occupational status: retired Smoking Status: Never smoker alcohol intake: never seatbelt use: always do you feel safe at home: Yes additional social history: Bill Past Medical/Surgical History Planned Operation Planned Operative Procedure/s: COLONOSCOPY S.O.S: No Previous Hospitalizations/Surgeries HX Hospitalizations: No HX of Surgeries: partial hysterectomy right carpal tunnel right knee scope tubal ligation cscope Any Problems With Anesthesia: No You/Your Family Experience Fever (Hyperthermia) With Anes: No Cholinesterase deficiency: No Cardiovascular Hx Chest Pain within Last 2 months: No Hx of Irregular Heartbeat and/or Afib: No Hx Heart Attack: No Hx Congestive Heart Failure: No Hx Rheumatic Fever: No Hx Hypertension: No Hx Internal Defibrillator: No Hx Pacemaker: No Hx Cardiac Catheterization: Yes (over 5 yrs ago) What facility was last heart cath performed: - Date of last Heart Cath: - Hx Cardiac Surgery/Stents/Etc.: No Hx Stress Test: Yes (over 5 yrs ago) Hx Pain in Legs when Walking/Leg Cramps: No Respiratory HX of Shortness of Breath: Yes Hoarseness: No Hx Chronic Obstructive Pulmonary Disease (COPD): No Hx Asthma: No Hx Emphysema: No Hx Sleep Apnea: No Hx Respiratory Tract Infection/Cold (presently): No Do You Snore Loudly (louder than talking or can be heard): No Do You Often Feel Tired/ Fatigued/ Sleepy Dring Daytime?: No Has Anyone Observed You Stop Breathing During Sleep?: No Result (for STOP score): Negative Hx Smoking: Yes (quit 20 yrs ago) Smoking Status: Never smoker Gastrointestinal Hx Gastroesophageal Reflux: Yes Controlled With Meds: Yes Hx Gastrointestinal Disorders: No (diverticulosis) Hx Gastrointestinal Bleed: No Hx Ulcer: Yes Hx Hiatal Hernia: No Difficulty Chewing/Swallowing: No Special diet followed at home: No Hx Unplanned Weight Loss of 20#: No HX Unplanned Weight Gain of 20#: No Neurological Hx Seizures: No HX Syncope/Blackout Spells/Unconsciousness: No Hx Transient Ischemic Attacks (TIA): No Hx Multiple Sclerosis: No Hx Parkinson's Disease: No Hx Head/Neck Injury: No Hx Headaches: No Hx Back Injury/Pain: No Recent Onset of Speech Difficulty: No Restless Legs: No Does patient have nerve stimulator: No Blood Disorder Hx Leukemia: No Bleeding Tendencies: No (not prior to eliquis) Hx High Cholesterol: Yes (on med) Blood Transmitted Disease: No Hx Hepatitis: No Hx Cirrhosis: No Hx Anemia: Yes Hx Blood Disorders: No Reproduction : No Is Patient Lactating: No Hx Hysterectomy: Yes Hx Tubal Ligation: Yes Are You Post Menopause: Yes Genitourinary Hx Renal Disease: No Hx Dialysis: No Musculoskeletal Hx Arthritis: No Hx Rheumatoid Arthritis: No Hx Gout: No Recent Onset of an Orthopedic Problem: No Endocrine Hx Diabetes: No Thyroid Disease: No Hx Steroid Therapy: No Psycho/Social Hx Substance Use: No Hx Alcohol Use: No Hx Anxiety: Yes Hx Depression: No Mental Illness: No Hx Dementia: No Miscellaneous Hx Cancer: No Recent Exposure to Contagious Disease: No Hx of C-Diff: No Any Loose Teeth: No Allergies metaxalone [From Skelaxin] Allergy (Intermediate, Verified 01/07/23 07:24) Hives levofloxacin [From Levaquin] Allergy (Unknown, Verified 01/07/23 07:24) irregular heart rate moxifloxacin [From Avelox] Allergy (Unknown, Verified 01/07/23 07:24) Hives amoxicillin [From Augmentin] Allergy (Verified 01/07/23 07:24) numbness around lips clavulanic acid [From Augmentin] Allergy (Verified 01/07/23 07:24) numbness around lips Discharge Is Pt Admitted From a Detention, or a Long Term: No Who Could Help: SPOUSE After D/C, Where Do you Plan to Go: Return Home From the [facility] History Number of Risk Factors: 3 Physical Exam Const alert, oriented x3 and no apparent distress HEENT normocephalic and head/scalp atraumatic Resp normal respiratory effort Cardio regular rate GI soft to palpation and non-tender; Negative for non-distended Palpation: Negative for guarding Extremity no clubbing, cyanosis or edema Neuro CN's II-XII intact bilaterally Psych mental status grossly normal Assessment & Plan Assessment/Plan (1) Encounter for screening for malignant neoplasm of colon: Surgery Risks - Colonoscopy Risks Include but are not Limited To: Risks include but are not limited to: Bleeding, perforation requiring further surgery, inability to complete colonoscopy requiring barium enema.
[2023-01-07] MEDS: Lactated Ringers 1,000 ML 15 ML IV (07:36)
--- NOTE | 2023-01-07 08:43 | OP.COLON_ITS ---
Patient Name: Shauna Lozoya Procedure Date: 01/07/2023 7:15 AM Date of : 1955 Age: 67 Procedure: Colonoscopy Indications: Screening for colorectal malignant neoplasm Providers: Chelsey Carrillo MD Referring MD: Chelsey Carrillo MD Medicines: Monitored Anesthesia Care Patient Profile: This is a 67 year old female. Last Colonoscopy: more than 10 years ago. Complications: No immediate complications. Procedure: Pre-Anesthesia Assessment: - Prior to the procedure, a History and Physical was performed, and patient medications and allergies were reviewed. The patient's tolerance of previous anesthesia was also reviewed. The risks and benefits of the procedure and the sedation options and risks were discussed with the patient. All questions were answered, and informed consent was obtained. Prior Anticoagulants: The patient has taken Eliquis (apixaban), last dose was 3 days prior to procedure. ASA Grade Assessment: Per anesthesia. After reviewing the risks and benefits, the patient was deemed in satisfactory condition to undergo the procedure. After I obtained informed consent, the scope was passed under direct vision. Throughout the procedure, the patient's blood pressure, pulse, and oxygen saturations were monitored continuously. The pediatric colonoscope was introduced through the anus and advanced to the cecum, identified by the appendiceal orifice, ileocecal valve and palpation. The colonoscopy was performed without difficulty. The patient tolerated the procedure well. The quality of the bowel preparation was good. Scope In: 8:17:31 AM Scope Withdrawal Time 0 hours 9 minutes 23 seconds Scope Out: 8:37:51 AM Total Procedure Duration Time 0 hours 20 minutes 20 seconds Findings: The perianal and digital rectal examinations were normal. Many small and large-mouthed diverticula were found in the entire colon. The exam was otherwise without abnormality on direct and retroflexion views. Impression: - Diverticulosis in the entire examined colon. - The examination was otherwise normal on direct and retroflexion views. - No specimens collected. Recommendation: - Discharge patient to home. - High fiber diet. - Resume Eliquis (apixaban) at prior dose today. - Repeat colonoscopy in 10 years for screening purposes. - Continue present medications. Procedure Code(s): --- Professional --- 09785, PT, Colonoscopy, flexible; diagnostic, including collection of specimen(s) by brushing or washing, when performed (separate procedure) Diagnosis Code(s): --- Professional --- Z12.11, Encounter for screening for malignant neoplasm of colon K57.30, Diverticulosis of large intestine without perforation or abscess without bleeding CPT copyright 2017 [employer]. All rights reserved. The codes documented in this report are preliminary and upon mailer review may be revised to meet current compliance requirements. MD Chelsey Robins MD 01/07/2023 8:42:37 AM This report has been signed electronically. Number of Addenda: 0 Note Initiated On: 01/07/2023 7:15 AM
--- NOTE | 2023-01-07 08:44 | OP.CCLET_ITS ---
01/07/2023 Agustin Antonio Re : Colonoscopy procedure for Shauna Lozoya Dear Dr. Antonio This procedure was performed on Saturday, January 07, 2023. My impressions and recommendations are as follows: Impressions : - Diverticulosis in the entire examined colon. - The examination was otherwise normal on direct and retroflexion views. - No specimens collected. Recommendations : - Discharge patient to home. - High fiber diet. - Resume Eliquis (apixaban) at prior dose today. - Repeat colonoscopy in 10 years for screening purposes. - Continue present medications. My findings are described in the full procedure note, which is enclosed. If I can be of further assistance, please feel free to contact me at Doctor phone number(s): , Work: . Sincerely, MD Chelsey Robins MD 01/07/2023 8:42:37 AM This report has been signed electronically.
== END 2023-01-07 09:44 | disposition home or self-care (01) ==
LOC: EN 07:03 → AC 07:04
PROVIDERS: PCP Family Medicine; Referring Provider Family Medicine; Visit Provider Surgery
PROC: 0DJD8ZZ Inspection of Lower Intestinal Tract, Via Natural or Artificial Opening Endoscopic (ICD-10-PCS; CPT 45378; principal; 2023-01-07 08:10)
DX: Z12.11 Encounter for screening for malignant neoplasm of colon (principal); K57.30 Diverticulosis of large intestine without perforation or abscess without bleeding; E78.00 Pure hypercholesterolemia, unspecified; Z86.711 Personal history of pulmonary embolism; Z79.899 Other long term (current) drug therapy; Z79.01 Long term (current) use of anticoagulants
CPT/HCPCS: 45378; J7120; J2405

== ENCOUNTER → 2023-01-21 | Outpatient (CLI) | payer MEDICARE, SELFPAY ==
--- NOTE | 2023-01-21 09:13 | BI_ITS ---
MAMMOGRAPHY - BILATERAL SCREENING REASON FOR EXAM: Female, 67 years old. Routine annual screening examination. PERTINENT HISTORY: Non-contributory. TECHNIQUE: Digital bilateral breast ira (3D mammographic acquisition) in the CC and MLO projections. 2-D mediolateral oblique (MLO) and craniocaudad (CC) views of both breasts were obtained. CAD: Full Field Digital Mammography with Computer Added Detection was performed. COMPARISON: Comparison is made with prior study of January 20, 2022 and December 13, 2020. FINDINGS: Breast Composition: The breasts are heterogeneously dense, which may obscure small masses. There are no dominant masses or suspicious calcifications. Stable small benign-appearing bilateral axillary lymph nodes. No other significant abnormalities are identified. There has been no significant change since the prior study. BI/SCRN MAMM (CAD)W/IRA BILAT IMPRESSION: Stable bilateral screening mammogram. Yearly follow-up mammogram recommended. (A) ASSESSMENT CATEGORY: BIRADS Category 2: Benign. A letter regarding these results will be sent to the patient by the facility within 30 days. Approximately 10% of breast cancers are not detected by mammography. A normal mammogram should not delay biopsy of a clinically suspicious abnormality. [id number] Electronically Signed: Stan Negron MD at 10:08 EDT ,
== END | disposition home or self-care (01) ==
LOC: OPBI 09:12
PROVIDERS: PCP Family Medicine; Referring Provider Nurse Practitioner Women's Health; Visit Provider Nurse Practitioner Women's Health
DX: Z12.31 Encounter for screening mammogram for malignant neoplasm of breast (principal)
CPT/HCPCS: 77063; 77067

== ENCOUNTER → 2023-07-01 | Outpatient (CLI) | payer MEDICARE, SELFPAY ==
[2023-07-01 14:37] LABS: ALB/GLOB Ratio 1.1 RATIO (0.9-2.4); AST(SGOT) 41 U/L (15-37); Alanine Aminotransfer ALT/SGPT 57 U/L (13-56); Albumin, Serum 3.9 g/dL (3.2-5.0); Alkaline Phosphatase 71 U/L (45-117); Anion Gap 8 (5-15); BUN 12 mg/dL (7-18); Calcium,Total 9.4 mg/dL (8.5-10.1); Chloride 105 mmol/L (98-107); Cholesterol 149 mg/dL (200); Creatinine, Serum 0.75 mg/dL (0.55-1.02); EST Glomerular Filtration Rate 81 mL/min (>60); Est Glom Filt Rate - Afr Amer 98 mL/min (>60); Globulin 3.4 g/dL (2.2-4.2); Glucose 100 mg/dL (74-106); High Density Lipoprotein 67 mg/dL; Potassium 4.4 mmol/L (3.5-5.1); Protein, Total 7.3 g/dL (6.4-8.2); Sodium Level 142 mmol/L (136-145); Triglycerides 142 mg/dL; Very Low Density Lipoprotein 28 mg/dL (5-40)
== END | disposition home or self-care (01) ==
LOC: BIMLAB 11:46
PROVIDERS: PCP Family Medicine; Referring Provider Family Medicine; Visit Provider Family Medicine
DX: I10 Essential (primary) hypertension (principal); E78.5 Hyperlipidemia, unspecified
CPT/HCPCS: 36415; 80053; 80061

== ENCOUNTER → 2024-02-19 | Outpatient (CLI) | payer MEDICARE, SELFPAY ==
--- NOTE | 2024-02-19 10:53 | BI_ITS ---
MAMMOGRAPHY - BILATERAL SCREENING REASON FOR EXAM: Female, 68 years old. Routine annual screening examination. PERTINENT HISTORY: Non-contributory. TECHNIQUE: Digital bilateral breast ira (3D mammographic acquisition) in the CC and MLO projections. 2-D mediolateral oblique (MLO) and craniocaudad (CC) views of both breasts were obtained. CAD: Full Field Digital Mammography with Computer Added Detection was performed. COMPARISON: Comparison is made with prior study of January 21, 2023 and January 20, 2022. FINDINGS: Breast Composition: The breasts are heterogeneously dense, which may obscure small masses. There are no dominant masses or suspicious calcifications. Stable small benign-appearing bilateral axillary lymph nodes. No other significant abnormalities are identified. There has been no significant change since the prior study. BI/SCRN MAMM (CAD)W/IRA BILAT IMPRESSION: Stable bilateral screening mammogram. Yearly follow-up mammogram recommended. (A) ASSESSMENT CATEGORY: BIRADS Category 2: Benign. A letter regarding these results will be sent to the patient by the facility within 30 days. Approximately 10% of breast cancers are not detected by mammography. A normal mammogram should not delay biopsy of a clinically suspicious abnormality. [id number] Electronically Signed: Stan Negron MD at 11:50 EDT ,
== END | disposition home or self-care (01) ==
LOC: OPBI 10:52
PROVIDERS: PCP Family Medicine; Referring Provider Nurse Practitioner Women's Health; Visit Provider Nurse Practitioner Women's Health
DX: Z12.31 Encounter for screening mammogram for malignant neoplasm of breast (principal)
CPT/HCPCS: 77063; 77067

== ENCOUNTER → 2024-12-20 | Outpatient (CLI) | payer MEDICARE, SELFPAY ==
[2024-12-20 13:24] LABS: ALB/GLOB Ratio 1.5 RATIO (0.9-2.4); AST(SGOT) 50 U/L (<=31); Alanine Aminotransfer ALT/SGPT 45 U/L (<=34); Albumin, Serum 4.5 g/dL (3.4-4.8); Alkaline Phosphatase 69 U/L (35-104); Anion Gap 14 (5-15); BUN 14 mg/dL (4-19); BUN/Creat Ratio 19.2 RATIO (10-20); Calcium,Total 9.8 mg/dL (7.6-11.0); Carbon Dioxide 23.6 mmol/L (21.0-32.0); Chloride 103 mmol/L (98-108); Cholesterol 162 mg/dL (<=200); Creatinine, Serum 0.71 mg/dL (0.70-1.20); EST Glomerular Filtration Rate 91 (>60); Globulin 3.1 g/dL (2.2-4.2); Glucose 117 mg/dL (70-99); High Density Lipoprotein 55 mg/dL; Low Density Lipoprotein Calc. 78 mg/dL; Potassium 4.7 mmol/L (3.3-5.1); Protein, Total 7.6 g/dL (5.9-8.4); Sodium Level 140 mmol/L (133-145); Total Bilirubin 0.33 mg/dL (0.00-1.30); Triglycerides 144 mg/dL; Very Low Density Lipoprotein 29 mg/dL (5-40); cholesterol:hdl ratio screen 2.95
== END | disposition home or self-care (01) ==
LOC: BIMLAB 09:09
PROVIDERS: PCP Family Medicine; Visit Provider Family Medicine
DX: E78.5 Hyperlipidemia, unspecified (principal); I10 Essential (primary) hypertension
CPT/HCPCS: 36415; 80053; 80061

== ENCOUNTER → 2024-12-29 | Outpatient (CLI) | payer MEDICARE, SELFPAY ==
--- NOTE | 2024-12-29 10:00 | BD_ITS ---
PROCEDURE: DEXA BONE DENSITY STUDY 12/29/2024 REASON FOR EXAM: OSTEOPOROSIS F, age 69 y/o . Postmenopausal. TECHNIQUE: DXA scan of the lumbar spine and both hips, using make and model. REFERENCE LINKS: ISCD Adult Positions COMPARISON: Comparison is made with prior study dated October 04, 2019. FINDINGS: BMD and T-SCORES Lumbar spine: 1.091 g/cm2, T-Score 0.4 L1 through L4 Change from prior: Loss of 5.6% Left femoral neck: 0.7 L3 g/cm2, T-Score -1.3 Femoral neck comparison data not recommended for monitoring change. Left total hip: 0.950 g/cm2, T-Score 0.1 Change from prior: Loss of 2.3% Right femoral neck: 0.705 g/cm2, T-Score -1.3 Femoral neck comparison data not recommended for monitoring change. Right total hip: 0.984 g/cm2, T-Score 0.3 Change from prior: Loss of 3.7% Fracture Risk Calculation: FRAX (10-year Fracture Risk) Score: FRAX scores should never be reported in a patient with osteoporosis on DEXA or for any patient that is on bone medication. The patient doesmeet the pharmacological treatment recommendations for prevention of osteoporosis BD/Dexa Bone Density Study IMPRESSION: OSTEOPENIA. Recommend follow-up as clinically warranted. Reading Location: [place] [id number]
== END | disposition home or self-care (01) ==
LOC: OPBD 09:43
PROVIDERS: PCP Family Medicine; Referring Provider Family Medicine; Visit Provider Family Medicine
DX: M81.0 Age-related osteoporosis without current pathological fracture (principal)
CPT/HCPCS: 77080

== ENCOUNTER → 2025-03-06 | Outpatient (CLI) | payer MEDICARE, SELFPAY ==
--- NOTE | 2025-03-06 08:15 | BI_ITS ---
EXAM: SCRN MAMM (CAD)W/IRA BILAT DATE: 03/06/2025 CLINICAL HISTORY: F, Age 69 y/o , SCREEN FOR BREAST CANCER BREAST CANCER RISK ASSESSMENT: Has not been calculated TECHNIQUE: SCRN MAMM (CAD)W/IRA BILAT COMPARISON: Prior exam(s) dated 02/19/2024, 01/21/2023, and 01/20/2022. FINDINGS: TISSUE DENSITY: The breast tissue is composed of scattered areas of fibroglandular density. Bilateral Breast Mammographic Findings: There are no suspicious masses, suspicious cluster of microcalcifications, architectural distortion or secondary signs of malignancy identified in either breast. Benign round calcifications are seen in both breasts. Benign-appearing secretory type calcifications are seen in the left breast. There is a stable 3 mm partially obscured isodense mass in the inferior medial far anterior aspect of the left breast. BI/SCRN MAMM (CAD)W/IRA BILAT IMPRESSION: Benign screening mammogram study. OVERALL FINAL ASSESSMENT BI-RADS 2: BENIGN RECOMMEND ANNUAL MAMMOGRAPHIC SCREENING. RECOMMENDATION: Routine annual follow-up in 1 Year A letter with findings and recommendations will be mailed to the patient. Reading Location: [id number]
== END | disposition home or self-care (01) ==
LOC: OPBI 08:03
PROVIDERS: PCP Family Medicine; Referring Provider Nurse Practitioner Women's Health; Visit Provider Nurse Practitioner Women's Health
DX: Z12.31 Encounter for screening mammogram for malignant neoplasm of breast (principal)
CPT/HCPCS: 77063; 77067

== ENCOUNTER → 2025-04-26 | Outpatient (CLI) | payer MEDICARE, SELFPAY ==
[2025-04-26 15:32] LABS: Mucous, Urine 0 SEEN /hpf (<or=2+)
[2025-04-26 15:47] LABS: Color, Urine Yellow (Yellow); Glucose, Dipstick Normal (Normal); Ketone-Dipstick Negative (Negative); Leukocyte Esterase-Dipstick 25 /ul (Negative); Nitrite-Dipstick Negative (Negative); Occult Blood-Urine 25 /ul (Negative); Protein-Dipstick 30 mg/dl (Negative); Specific Gravity, Urine 1.025 (1.002-1.030); Urine Bilirubin Dipstick Negative (Negative)
[2025-04-26 17:05] LABS: Red Blood Cells-Urine 5-10 SEEN /hpf (0-5); Squamous Epithelial Cells - UA 0-5 SEEN /hpf (5-10); Transitional Epithelial - Ur 0-5 SEEN /hpf (0-5)
== END | disposition home or self-care (01) ==
LOC: LABSPEC 15:16
PROVIDERS: Internal Medicine; PCP Family Medicine; Referring Provider Physician Assistant; Visit Provider Physician Assistant
DX: R31.9 Hematuria, unspecified (principal)
CPT/HCPCS: 81001; 87086

== ENCOUNTER → 2025-08-18 | Outpatient (CLI) | payer MEDICARE, SELFPAY ==
--- OUTSIDE RECORDS SUMMARY | 2025-08-18 17:37 | XMS RPT_ITS | CCD ---
Author Organization [facility] Care Team Providers Care Nursery Laborer Name Role Phone Aubrey Bob Unavailable MARKUS ANTONIO Referring Unavailable TE ALEXANDRA (HULL SORTER) Attending Unavail able Dr. Markus Antonio Primary Care Provider [phone] Dr. Markus Antonio Attending Provider [phone] Dr. Markus Antonio Referring Provider Dr. Markus Antonio Primary Care Provider [phone] Alaina Patel Attending Provider Unavailable Dr. Markus Antonio Referring Provider [phone] Dr. Chelsey Carrillo Attending Provider Dr. Chelsey Carrillo Other Provider Dr. Markus Antonio Primary Care Provider [phone] Dr. Mrakus Antonio Attending Provider [phone] Dr. Markus Antonio Referring Provider [phone] Dr. Markus Antonio DO Primary Care Provider Dr. Markus Antonio DO Attending Provider [phone] Dr. Markus Antonio DO Referring Provider [phone] Brooke Fenton Attending Provider [phone] Pranav WILSON-CBrooke Referring Provider Dr. Markus Antonio DO Primary Care Provider Dr. Markus Antonio DO Attending Provider [phone] Dr. Markus Antonio DO Referring Provider [phone] Evan MICHAEL, Dr. Davey Attending Provider [phone] Dr. Markus Antonio DO Primary Care Provider [phone] Dr. Markus Antonio DO Referring Provider [phone] Nathanael Mitchell Attending Provider [phone] Nathanael Mitchell Referring Provider [phone] Markus Antonio DO Primary Care Physician Pranav WILSON-Judy, Brooke Attending Physician [phone] Evan MICHAEL, Dr. Davey Attending Physician [phone] Nathanael Mitchell Attending Physician [phone] NURSE, BIM Attending Physician Unavailable Pranav STRATEGIC PARTNERSHIP MANAGER, Brooke Attending Unavailable Pranav STRATEGIC PARTNERSHIP MANAGER, Brooke Referring Unavailable Brown, Markus R Primary Care Unavailable Monisha DEL ANGEL, Nathanael Attending Unavailable Nathanael Mitchell Referring Unavailable Brown, Markus R Primary Care Unavailable Brown, Markus R Referring Unavailable Brown, Markus R Primary Care Unavailable Tamica Gordon Attending Unavailable Brown, Markus R Referring Unavailable Jackie Stockton Attending Unavailable Brown, Markus R Primary Care Unavailable Brown, Markus R Attending Unavailable Brown, Markus R Referring Unavailable Brown, Markus R Primary Care Unavailable Brown, Markus R Referring Unavailable Brown, Markus R Primary Care Unavailable Pranav STRATEGIC PARTNERSHIP MANAGER, Brooke Attending Unavailable Brown, Markus R Attending Unavailable Brown, Markus R Primary Care Unavailable Brown, Markus R Referring Unavailable Brown, Markus R Primary Care Unavailable Brown, Markus R Attending Unavailable Allergies Allergy Classification Reported Allergen(s) Allergy Type Date of Onset Reaction(s) Facility (13 sources) metaxalone; Translations: [METAXALONE] Drug Allergy 6 [facility] Repository (11 sources) Amoxicillin Drug Allergy 2 numbness around lips [facility] (11 sources) Clavulanate Drug Allergy 2 numbness around lips [facility] (11 sources) levoFLOXacin Drug Allergy 2 irregular heart rate [facility] (11 sources) moxifloxacin Drug Allergy 2 Unknown, [facility] (1 source) Amoxicillin Drug Allergy 5 [facility] Repository (1 source) Clavulanate Drug Allergy 5 [facility] Repository (1 source) levoFLOXacin Drug Allergy 5 [facility] Repository (1 source) moxifloxacin Drug Allergy 5 [facility] Repository Medications Current Medications Medication Drug Class(es) Dates Sig (Normalized) Sig (Original) cholecalciferol 0.025 mg oral capsule (11 sources) Vitamin D Start: 01-16-2021 take 1 capsule by mouth once daily propranolol hydrochloride 20 mg oral tablet (20 sources) beta-Adrenergic Humberto Start: 05-15-2021 End: 06-14-2025 take 1 tablet by mouth three times daily Start: 01-18-2020 End: 05-15-2021 take 1 tablet by mouth twice daily Propranolol 20 mg tablet Discontinued 20 mg PO TWICE A DAY 180 May 23, 2020 8:29am May 15, 2021 11:30am Start: 05-23-2019 End: 01-18-2020 take 1 tablet by mouth once daily Propranolol 20 mg tablet Discontinued 20 mg PO DAILY 90 July 12, 2019 9:26am January 18, 2020 1:19pm Start: 01-01-2018 End: 05-23-2019 take 1 tablet by mouth twice daily Propranolol 20 mg tablet Discontinued 20 mg PO TWICE A DAY 180 July 06, 2018 8:40am May 23, 2019 8:21am timolol 2.5 mg/ml ophthalmic solution (7 sources) beta-Adrenergic Humberto Start: 04-18-2024 take 0.25 drop(s ) into the eye(s) once daily Completed/Discontinued Medications Medication Drug Class(es) Dates Sig (Normalized) Sig (Original) acetaminophen 325 mg / oxyCODONE hydrochloride 5 mg oral tablet (11 sources) Opioid Agonist Start: 05-27-2019 End: 06-04-2019 Oxycodone-Acetamino phen 1 TABLET tablet Discontinued 1 {tbl} PO EVERY 4 HOURS NEEDED as needed for Pain 14 7 0 May 27, 2019 June 02, 2019 12:00am June 04, 2019 12:10am Personal history of urinary calculi Start: 05-27-2019 End: 06-04-2019 take 1 tablet by mouth every four hours as needed Oxycodone-Acetaminophen Discontinued 1 TABLET PO EVERY 4 HOURS NEEDED 14 7 May 27, 2019 June 04, 2019 12:10am apixaban 2.5 mg oral tablet (20 sources) Factor Xa Inhibitor Start: 12-25-2021 End: 10-11-2024 take 1 tablet by mouth twice daily Apixaban (Eliquis) 2.5 mg tablet Discontinued 2.5 mg PO TWICE A DAY 180 90 3 August 26, 2023 1:09pm October 11, 2024 10:00am Start: 02-09-2019 End: 12-25-2021 take 1 tablet by mouth three times daily Apixaban (Eliquis) 2.5 mg tablet Discontinued 2.5 mg PO TWICE A DAY 180 3 February 21, 2020 10:15am January 16, 2021 9:59am will stop 3 days prior Start: 02-10-2018 End: 02-09-2019 take 1 tablet by mouth twice daily Apixaban (Eliquis) 2.5 mg tablet Discontinued 2.5 mg PO TWICE A DAY 180 3 January 04, 2019 9:34am February 09, 2019 1:42pm azithromycin 250 mg oral tablet (11 sources) Macrolide Antimicrobial Start: 06-29-2018 End: 01-04-2019 Azithromycin 250 mg tablet Discontinued 0 PO .COMPLEX 6 0 June 29, 2018 12:00am January 04, 2019 9:14am Take two tablets on day one, then one tablet on days 2-5 PO cephalexin 500 mg oral capsule (11 sources) Cephalosporin Antibacterial Start: 05-27-2019 End: 07-12-2019 take 1 capsule by mouth every eight hours Cephalexin 500 MG capsule Discontinued 500 mg PO EVERY 8 HOURS 10 0 May 27, 2019 12:00am July 12, 2019 9:09am doxycycline hyclate 100 mg oral capsule (7 sources) Tetracycline-class Drug Start: 10-26-2023 End: 11-02-2023 take 1 capsule by mouth twice daily Doxycycline Hyclate 100 mg capsule Discontinued 100 mg PO TWICE A DAY 14 7 0 October 26, 2023 1:00am November 01, 2023 1:00am November 02, 2023 1:04am Fluad Quad [id number](65yr up)(PF) 60 mcg (15 mcg x 4)/0.5mL IM syringe (flu vac (2 sources) Start: 06-18-2021 End: 06-18-2021 Fluad Quad (65yr up)(PF) 60 mcg (15 mcg x 4)/0.5mL IM syringe (flu vac Discontinued 60 MCG IM ONCE 0.5 June 18, 2021 11:46am June 18, 2021 12:02pm ibuprofen 200 mg oral tablet (11 sources) Nonsteroidal Anti-inflammatory Drug Start: 05-23-2019 End: 12-20-2024 Ibuprofen 200 MG tablet Discontinued 200 mg PO NEEDED as needed for Pain May 23, 2019 12:00am December 20, 2024 8:54am lisinopril 10 mg oral tablet (20 sources) Angiotensin Converting Enzyme Inhibitor Start: 06-29-2018 End: 04-04-2021 take 5 mg by mouth at bedtime Lisinopril 10 mg tablet Discontinued 5 mg PO AT BEDTIME 90 3 December 07, 2019 10:47am January 16, 2021 9:59am Start: 06-29-2018 End: 04-04-2021 take 5 mg by mouth at bedtime Lisinopril Discontinued 5 MG PO AT BEDTIME 90 December 07, 2019 10:47am January 16, 2021 9:59am Start: 02-10-2018 End: 06-29-2018 take 1 tablet by mouth once daily Lisinopril 10 mg tablet Discontinued 10 mg PO daily February 10, 2018 12:00am June 29, 2018 8:45am loratadine 10 mg oral tablet (20 sources) Start: 01-04-2019 End: 12-20-2024 take 1 tablet by mouth once daily as needed Loratadine 10 MG tablet Discontinued 10 mg PO DAILY as needed for Allergies May 23, 2019 8:21am December 20, 2024 8:54am rosuvastatin calcium 5 mg oral tablet (20 sources) HMG-CoA Reductase Inhibitor Start: 02-10-2018 End: 12-20-2024 take 1 tablet by mouth once daily at bedtime Rosuvastatin 5 mg tablet Discontinued 5 mg PO AT BEDTIME 30 0 November 16, 2024 1:22pm December 20, 2024 9:04am TAKE 1 TABLET DAILY topiramate 50 mg oral tablet (11 sources) Start: 04-04-2021 End: 02-18-2022 take 1 tablet by mouth at bedtime Topiramate (Topamax) 50 mg tablet Discontinued 50 mg PO AT BEDTIME 90 1 April 04, 2021 12:00am February 18, 2022 1:16pm triamcinolone acetonide 40 mg/ml injectable suspension (2 sources) Corticosteroid Start: 02-13-2021 End: 02-13-2021 Kenalog (triamcinolone acetonide) 40 mg/mL suspension for injection Discontinued 80 MG INTRAARTIC ONCE 2 February 13, 2021 9:15am February 13, 2021 11:12am Problems Active Problems Problem Classification Problem Date Documented Date Episodic/Chronic Calculus of urinary tract (6 sources) History of calculus of kidney; Translations: [Personal history of urinary calculi] 04-26-2025 Episodic Comment on above: 06/02 Disorders of lipid metabolism (18 sources) Hyperlipidemia; Translations: [Hyperlipidemia, unspecified] Onset: 12-23-2024 Chronic Comment on above: Patient continues on her statin. Diverticulosis and diverticulitis (9 sources) Diverticulosis of colon; Translations: [Diverticulosis of large intestine without perforation or abscess without bleeding] 07-01-2023 Chronic Essential hypertension (18 sources) Benign essential hypertension; Translations: [Essential (primary) hypertension] Onset: 12-20-2024 Chronic Comment on above: Blood pressure is un dinorah good control. Genitourinary symptoms and ill-defined conditions (7 sources) Urine looks dark; Translations: [Other abnormal findings in urine] Onset: 05-05-2025 04-26-2025 Episodic Immunizations and screening for infectious disease (1 source) Encounter for immunization; Translations: [Encounter for immunization] Onset: 06-29-2025 Episodic Osteoporosis (1 source) Age-related osteoporosis without current pathological fracture; Translations: [Age-related osteoporosis without current pathological fracture] Onset: 01-03-2025 Chronic Other connective tissue disease (13 sources) Trochanteric bursitis; Translations: [Trochanteric bursitis, right hip] 01-16-2021 Episodic Other connective tissue disease (1 source) Trochanteric bursitis of right hip; Translations: [Trochanteric bursitis, right hip] 12-20-2024 Episodic Other hereditary and degenerative nervous system conditions (14 sources) Essential tremor; Translations: [Essential tremor] 02-11-2018 Chronic Other hereditary and degenerative nervous system conditions (1 source) Essential tremor; Translations: [Essential and other specified forms of tremor] 07-01-2023 Chronic Other lower respiratory disease (11 sources) Chronic cough; Translations: [Chronic cough] 06-29-2018 Episodic Other nervous system disorders (2 sources) Carpal tunnel syndrome, left upper limb; Translations: [Carpal tunnel syndrome, left upper limb] Onset: 04-29-2017 05-11-2017 Chronic Other upper respiratory infections (7 sources) Maxillary sinusitis; Translations: [Chronic maxillary sinusitis] 04-18-2024 Chronic Pulmonary heart disease (15 sources) H/O: pulmonary embolus; Translations: [Personal history of pulmonary embolism] Episodic Comment on above: She continues on [place]. Residual codes; unclassified (8 sources) Disturbance in sleep behavior; Translations: [Sleep disorder, unspecified] 07-01-2023 Episodic Residual codes; unclassified (1 source) Sleep disorder, unspecified; Translations: [Sleep disturbance, unspecified] 07-01-2023 Episodic Spondylosis; intervertebral disc disorders; other back problems (20 sources) Neck pain; Translations: [Cervicalgia] 02-13-2021 Episodic Sprains and strains (16 sources) Sprain of ankle; Translations: [Sprain of unspecified ligament of right ankle, initial encounter] 03-06-2023 Episodic Superficial injury; contusion (9 sources) Contusion of left knee; Translations: [Contusion of left knee, initial encounter] 03-06-2023 Episodic Past or Other Problems Problem Classification Problem Date Documented Da te Episodic/Chronic Other non-traumatic joint disorders (2 sources) Pain in wrist; Translations: [Pain in left wrist] Onset: 04-29-2017 05-11-2017 Episodic Other screening for suspected conditions (not mental disorders or infectious disease) (4 sources) Patient encounter status; Translations: [Encounter for screening for malignant neoplasm of colon] Onset: 03-09-2025 11-27-2022 Episodic Unclassified (7 sources) Abrasion, right knee, initial encounter 03-06-2023 Results Test Name Value Interpretation Reference Range Facility Internal Medicine Office Vis yodit 06-22-2025 Internal Medicine Office Visit [facility] Internal Medicine Counts include 234 beds at the [facility] [place] [address] OFFICE VISIT Date of Service: 06/22/25 MR#: [id number] Acct: [id number] Name: JAMIE JOHNSON Rep #: [id number] : 1955 Provider: TORREY NURSE Age/Sex: 69/F Location: [email or web address] Status: Signed with Addenda ADDENDUM by Gely Vilchis on 06/22/25 at 1642 Office Procedure Documentation entered by Gely Vilchis 06/22/25 16:42: Immunizations Fluad 65yr up(PF)45 mcg(15 mcgx3)/0.5 mL intramuscular syringe Performing Provider: Markus Antonio DO Performing Location: [facility] Administered by: Desire Brennan MA on 06/22/25 10:01 Dose Route Admin Location Dispensed Lot Number Expiration Date Package NDC NDC Commercial Attache 45 mcg IM Left Deltoid 0.5 mL [id number] 01/09/26 50061-245-40 [id number] SmartCare system. VIS Given Date VIS Provided VIS Publication Date 06/22/25 Single Vaccine 24 Eligibility Eligibility Date Funding Source Not Applicable Administration Comments: rosa elena injection given patient tolerated well Date cc: * Signed Intake Vital Signs 04/26/25 07:35 05/30/25 09:18 Height 5 ft 4 in 5 ft 4 in Weight: 196 lb BMI 33.6 BP 116/66 Blood Pressure Location Lt brachial Position Sitting Respiration 14 Pulse 85 Pulse Source Monitor Temp 97.4 F L Temp Source Temporal Pulse Oximetry (%) 95 Oxygen Delivery Method room air Intake Visit Reasons: Flu Shot Chief Complaint: Annual Allergies metaxalone (From Skelaxin) Allergy (Intermediate, Verified 05/30/25 09:23) Hives levofloxacin (From Levaquin) Allergy (Unknown, Verified 05/30/25 09:23) irregular heart rate moxifloxacin (From Avelox) Allergy (Unknown, Verified 05/30/25 09:23) Hives amoxicillin (From Augmentin) Allergy (Verified 05/30/25 09:23) numbness around lips clavulanic acid (From Augmentin) Allergy (Verified 05/30/25 09:23) numbness around lips Have you fallen in the past year?: No PFSH Medical History Dark urine Wears glasses Cancer High cholesterol History of ulceration History of diverticulitis Former smoker History of echocardiogram History of stress test History of pulmonary embolism Pulmonary embolism Hyperlipidemia Surgical History History of renal calculi History of colonoscopy History of hysterectomy History of arthroscopy of right knee History of cardiac cath History of carpal tunnel surgery of right wrist Family History Sister Lung cancer Bladder cancer Social History number of children: 2 current occupational status: retired Smoking Status: Never smoker alcohol intake: never seatbelt use: always do you feel safe at home: Yes additional social history: Bill HPI HPI Chief Complaint: Annual Details: JAMIE FISHN, is a 69 F who presents to the office today for Immunizations Fluad 65yr up(PF)45 mcg(15 mcgx3)/0.5 mL intramuscular syringe Performing Provider: Markus Antonio DO Performing Location: [facility] Administered by: Desire Brennan MA on 06/22/25 10:01 Dose Route Admin Location Dispensed Lot Number Expiration Date Package NDC NDC Commercial Attache 45 mcg IM Left Deltoid 0.5 mL [id number] 01/09/26 00848-356-51 [id number] SmartCare system. VIS Given Date VIS Provided VIS Publication Date 06/22/25 Single Vaccine 24 Eligibility Eligibility Date Funding Source Not Applicable Coding Level of Care Code Off vis,est,level 1 Assessment and Plan Assessment and Plan Orders: Orders Influenza Immunization Today Z23 - Encounter for immunization Clinical Quality Measures Falls Risk Screening/Assistive Devices Have you fallen in the past year?: No 06/22/25 1031 Date Jackie Yoder Signature: Date (if applicable) CC: Normal [facility] Veterinary Microbiologist Office Visit Reporton 05-30-2025 Veterinary Microbiologist Office Visit Report [facility] [address], [address] [place] [address] OFFICE VISIT Date of Service: 05/30/25 MR#: [id number] Acct: [id number] Name: JAMIE JOHNSON Rep #: [id number] : 1955 Provider: HENRY rg Age/Sex: 69/F Location: 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??Recorded ???Confirmed ???Type cholecalciferol (vitamin D3) 25 25 mcg PO DAILY 01/16/21 05/30/25 History mcg (1,000 unit) capsule timolol 0.25 % eye drops 1 drp ophthalmic (eye) DAILY 04/1805/30/25 History apixaban 2.5 mg tablet (Eliquis) 2.5 mg PO BID 3 months #180 tabs 0 10/11/24 05/30/25 Rx rosuvastatin 5 mg tablet 5 mg PO QHS #90 tabs 12/20/2405/15 Rx propranolol 20 mg tablet 20 mg PO TID #270 TABLETS 01/03/25 05/30/25 Rx Is last menstrual period known: No Post menopausal: Yes Patient : No : No PFSH Medical History Dark urine Wears glasses Cancer High cholesterol History of ulceration History of diverticulitis Former smoker History of echocardiogram History of stress test History of pulmonary embolism Pulmonary embolism Hyperlipidemia Surgical History History of renal calculi History of colonoscopy History of hysterectomy History of arthroscopy of right knee History of cardiac cath History of carpal tunnel surgery of right wrist Family History Sister Lung cancer Bladder cancer Social History number of children: 2 current occupational status: retired Smoking Status: Never smoker alcohol intake: never seatbelt use: always do you feel safe at home: Yes additional social history: Bill History 2 Elective abortions Hx Para 2 Spontaneous abortions Hx # Term Pregnancies Ectopic pregnancies Hx # Pregnancies Multiple births # of living children 2 HPI Encounter for routine gynecological examination Details: JAMIE JOHNSON is a 69 year old who presents for annual exam. Denies concerns Last PAP: hyst History of abnormal PAP: no Last mammogram: 02/2025 History of abnormal mammogram: no Colon cancer screenin Other preventative health care screenings: Jose Antonio Female Reproductive History Questions: metrorrhagia: No, sexually active: Yes, dyspareunia: No and PCB: No ROS Const Constitutional: Denies fatigue, weight gain or weight loss Cardio Card: Denies chest pain Resp Resp: Denies cough or dyspnea on exertion GI GI: Denies abdominal pain, bloating, change in stool character, constipation or vomiting : Reports as per HPI; Denies difficulty voiding, pelvic pain, urinary frequency, urinary incontinence, urinary urgency, vaginal discharge or vaginal pruritus Exam Const General: cooperative, healthy appearing, no acute distress and well developed Orientation: alert, oriented to person and oriented to place [facility] Head: normal to inspection Neck Neck: normal visual inspection Thyroid: thyroid normal Lymphatic: no lymphadenopathy noted Chest Breast inspection: normal inspection of the breasts and normal inspection of the axillae Breast palpation: normal palpation of the breasts, normal palpation of the axillae and no axillary lymphadenopathy Resp Effort Inspection: normal respiratory effort GI Palpation: soft, no masses and nontender Rectal Exam: deferred External Female Exam: normal external appearance and normal appearance of the urethra Urethra: normal appearance of the urethra and normal palpation Speculum Exam - Vagina: normal appearance of the vagina and normal vaginal discharge Speculum Exam - Cervix: closed Bimanual Exam- Vagina Uterus: normal bimanual exam and uterus absent Bimanual Exam- Adnexa, other: normal adnexae, no masses, normal and non-tender Pelvic Support: normal Neuro General: patient alert and (more content not included)... Normal [facility] Urine Cultureon 04-27-2025 [facility] Culture exhibits no growth. Normal [facility] Comment on above: Performed By: #### M [id number] #### [facility] [address] [place], [address] Bilirubin Test strip Ql (U)O rdered By: Tamica Gordon on 04-26-2025 Bilirubin Ql (U) Negative Negative [facility] Internal Medicine Office Vis yodit 04-26-2025 Internal Medicine Office Visit [facility] Counts include 234 beds at the [facility] [address] [place] [address] OFFICE VISIT Date of Service: 04/26/25 MR#: [id number] Acct: [id number] Name: JAMIE JOHNSON Rep #: [id number] : 1955 Provider: Dr. Tamica jarrett MD Age/Sex: 69/F Location: [facility] Status: Signed Intake Vital Signs 12/20/24 08:34 04/26/25 07:35 Height 5 ft 4 in 5 ft 4 in Weight: 196 lb BMI 33.6 BP 116/66 Blood Pressure Location Lt brachial Position Sitting Respiration 14 Pulse 85 Pulse Source Monitor Temp 97.4 F L Temp Source Temporal Pulse Oximetry (%) 95 Oxygen Delivery Method room air Intake Visit Reasons: Blood in urine. History of kidney stones. Chief Complaint: Dark urine Counseling Psychologist Required: No Is patient in pain?: No Allergies metaxalone (From Skelaxin) Allergy (Intermediate, Verified 04/26/25 07:27) Hives levofloxacin (From Levaquin) Allergy (Unknown, Verified 04/26/25 07:27) irregular heart rate moxifloxacin (From Avelox) Allergy (Unknown, Verified 04/26/25 07:27) Hives amoxicillin (From Augmentin) Allergy (Verified 04/26/25 07:27) numbness around lips clavulanic acid (From Augmentin) Allergy (Verified 04/26/25 07:27) numbness around lips Medications ???Medication ???Instructions ???Recorded ???Confirmed ???Type cholecalciferol (vitamin D3) 25 25 mcg PO DAILY 01/16/21 04/26/25 History mcg (1,000 unit) capsule timolol 0.25 % eye drops 1 drp ophthalmic (eye) DAILY 04/1804/26/25 History apixaban 2.5 mg tablet (Eliquis) 2.5 mg PO BID 3 months #180 tabs 0 10/11/24 04/26/25 Rx rosuvastatin 5 mg tablet 5 mg PO QHS #90 tabs 12/20/2404/14 Rx propranolol 20 mg tablet 20 mg PO TID #270 TABLETS 01/03/25 04/26/25 Rx Have you fallen in the past year?: No PFSH Medical History (Updated 04/26/25 @ 12:[address] Tamica Gordon MD) Dark urine Wears glasses Cancer High cholesterol History of ulceration History of diverticulitis Former smoker History of echocardiogram History of stress test History of pulmonary embolism Pulmonary embolism Hyperlipidemia Surgical History (Updated 04/26/25 @ 12:[address] Tamica Gordon MD) History of renal calculi History of colonoscopy History of hysterectomy History of arthroscopy of right knee History of cardiac cath History of carpal tunnel surgery of right wrist Family History [facility] cancer Bladder cancer Social History number of children: 2 current occupational status: retired Smoking Status: Never smoker alcohol intake: never seatbelt use: always do you feel safe at home: Yes additional social history: Raymon HPI HPI Chief Complaint: Dark urine Details: JAMIE JOHNSON, is a 69 F who presents to the office today for an acute visit. Few days ago, noted dark urine when she woke up. Painless. Subsequently cleared up through the day and has had no further concerns with this. Prior history of UTI and kidney stones status post surgery. Denies flank pain, chills, fever or feeling of unwell. She states that she stays well- hydrated. Last episode of kidney stone/UTI was in 2019. ROS Const Constitutional: No body ache, chills, excessive sweating, fatigue, fever(s), frequent falls, headache(s), snoring, weakness, sleep problems or change in appetite Eyes Eyes: No blurry vision, change in vision, eye pain or Light sensitivity ENT ENT: No abnormal hearing, ear or mastoid pain, tinnitus, nasal congestion, headache(s), neck pain or sore throat Resp Respiratory: No cough, shortness of breath, snoring or wheezing Cardio Cardiology: No chest pain at rest, chest pain with exertion, excessive sweating, shortness of breath, dyspnea on exertion, lightheadedness, orthopnea or palpitations Gastro GI: No abdominal pain, change in bowel habits, constipation, cramping, diarrhea, nausea/dyspepsia or vomiting Genitourinary-Femal e: Positive for pelvic pain; No burning urination, painful urination, urinary incontinence, urinary frequency or abnormal vaginal bleeding Musc Musculoskeletal: Positive for back pain; No abnormal gait, joint pain, limited range of motion, neck pain or numbness Skin Skin: No dry skin, redness, lesions, itchy eyes, rash or wounds Neuro Neurology: No abnormal gait, abnormal hearing, weakness, frequent falls, headache(s), memory loss or numbness Psych Psychiatric: No anxiety, No change in appetite, No depression, No memory loss and No Thoughts of harming yourself/Others Endo Endocrine: No cold intolerance, excessive sweating, fatigue, flushing, heat intolerance, increased thirst/drinking or increased hunger Aller/Imm Allergy/Immunologic : No itchy eyes, seasonal allergy s (more content not included)... Normal [facility] Ketones Test strip Ql (U)Ord ered By: Tamica Gordon on 04-26-2025 Ketones Ql (U) Negative Negative [facility] Laboratory - Chemistry and C hemistry - challengeOrdered By: Nathanael Bearden on 04-26-2025 Bilirubin Ql (U) Small (1+) [facility] Glucose Ql (U) Negative [facility] Ketones Ql (U) Trace (5) [facility] pH (U) 5.0 [pH] [facility] Specific gravity (U) [Rel density] 1.020 [facility] Urobilinogen (U) [Mass/Vol] Negative [facility] Laboratory - Hematology and Cell countsOrdered By: Nathanael Bearden on 04-26-2025 Hemoglobin Ql (U) Hemolyzed [facility] Laboratory - Specimen inform ationOrdered By: Nathanael Bearden on 04-26-2025 Clarity (U) Clear [facility] Color (U) DARK YELLOW [facility] Laboratory - UrinalysisOrder ed By: Nathanael Bearden on 04-26-2025 Nitrite Ql (U) Negative [facility] Protein Ql (U) Trace [facility] Microscopic analysis of urin e for red blood cells (RBC)Ordered By: Tamica Gordon on 04-26-2025 Microscopic analysis of urine for red blood cells (RBC) 5-10 SEEN /hpf 0-5 [facility] Mucus LM Ql (Urine sed)Order ed By: Tamica Gordon on 04-26-2025 Mucus Ql (Urine sed) 0 SEEN /hpf [facility] Nitrite Test strip Ql (U)Ord ered By: Tamica Gordon on 04-26-2025 Nitrite Ql (U) Negative Negative [facility] No Panel InformationOrdered By: Nathanael Bearden on 04-26-2025 Urine Leukocytes Positive [facility] Urine Non-Hemolyzed Blood Trace [facility] Protein Test strip Ql (U)Ord ered By: Tamica Gordon on 04-26-2025 Protein Ql (U) 30 mg/dl High Negative [facility] Squamous epithelial cells de tection in urine sediment by light microscopyOrdered By: Tamica Gordon on 04-26-2025 Epithelial cells.squamous LM Ql (Urine sed) 0-5 SEEN /hpf 5-10 [facility] Transitional cells detection in urine sediment by light microscopyOrdered By: Tamica Gordon on 04-26-2025 Transitional cells LM Ql (Urine sed) 0-5 SEEN /hpf 0-5 [facility] Urinalysis, Completeon 04-26 EPI,SQUAMOUS 0-5 SEEN Normal 5-10 [facility] Comment on above: Order Comment: LINA CTOR TO SPECIFY Performed By: #### L [id number] #### [facility] Laboratory [address] [place], [address] EPI,TRANSITION 0-5 SEEN Normal 0-5 [facility] Comment on above: Order Comment: LINA CTOR TO SPECIFY Performed By: #### L [id number] #### [facility] [address] [place], [address] RBC 5-10 SEEN Normal 0-[address] [place] [address] Comment on above: Order Comment: LINA CTOR TO SPECIFY Performed By: #### L [id number] #### [facility] [address] [place], [address] WBC 0-5 SEEN Normal 0-5 [facility] Comment on above: Order Comment: LINA CTOR TO SPECIFY Performed By: #### L [id number] #### [facility] [address] [place], [address] BACTERIA 0 SEEN Normal None Seen [facility] Comment on above: Order Comment: LINA CTOR TO SPECIFY Performed By: #### L [id number] #### [facility] [address] [place], [address] Mucus Ql (Urine sed) 0 SEEN Normal [facility] Comment on above: Order Comment: LINA CTOR TO SPECIFY Performed By: #### L [id number] #### [facility] [address] [place], [address] Urine clarityOrdered By: Jonathan Gordon on 04-26-2025 Clarity (U) Clear Clear [facility] Urine color determinationOrd ered By: Tamica Gordon on 04-26-2025 Color (U) Yellow Yellow [facility] Urine cultureOrdered By: Humberto Bearden on 04-26-2025 Bacteria identified Cx Nom (U) Culture exhibits no growth. [facility] Urine glucose detectionOrder ed By: Tamica Gordon on 04-26-2025 Glucose Ql (U) Normal mg/dl Normal [facility] Urine leukocyte esterase det ection by dipstickOrdered By: Tamica Gordon on 04-26-2025 Leukocyte esterase Test strip Ql (U) 25 /ul High Negative [facility] Urine pHOrdered By: Patricia Gordon on 04-26-2025 pH (U) 6.0 [pH] 5.0 - 8.0 [facility] Urine sediment bacteria coun t by microscopy (number/high power field)Ordered By: Tamica Gordon on 04-26-2025 Bacteria LM.HPF (Urine sed) [#/Area] 0 /[HPF] None Seen [facility] Urine specific gravity measu rementOrdered By: Tamica Gordon on 04-26-2025 Specific gravity (U) [Rel density] 1.025 1.002-1.030 [facility] Urine urobilinogen measureme ntOrdered By: Tamica Gordon on 04-26-2025 Urobilinogen Ql (U) Normal mg/dl Normal [facility] White blood cell countOrdere d By: Tamica Gordon on 04-26-2025 White blood cell count 0-5 SEEN /hpf 0-5 [facility] Breast imaging reportOrdered By: Jennifer Suarez on 03-06-2025 Study report [facility] Imaging Services [address] [place], [place] [id number] SCRN MAMM (CAD)W/IRA BILAT MR#: [id number] Acct: [id number] Name: JAMIE JOHNSON Rep #: [id number] : 1955 F 69 From: Hugo Suarez DO PCP: Dr. Markus Antonio DO Status: RE G CLI Study:SCRN MAMM (CAD)W/IRA BILAT Date of Exa m: 03/06/25 Exam# [id number] Ordering Dr: Brooke Rock NP [employer]NERSHIP MANAGER-C EXAM: SCRN MAMM (CAD)W/IRA BILAT DATE: 03/06/2025 CLINICAL HISTORY: F, Age 69 y/o , SCREEN FOR BREAST CANCER BREAST CANCER RISK ASSESSMENT: Has not been calculated TECHNIQUE: SCRN MAMM (CAD)W/IRA BILAT COMPARISON: Prior exam(s) dated 02/19/2024, 01/21/2023, and 01/20/2022. FINDINGS: TISSUE DENSITY: The breast tissue is composed of scattered areas of fibroglandular density. Bilateral Breast Mammographic Findings: There are no suspicious masses, suspicious cluster of microcalcifications , architectural distortion or secondary signs of malignancy identified in either breast. Benign round calcifications are seen inboth breasts. Benign-appearing secretory type calcifications are seen in the left breast. There is a stable 3 mm partially obscured isodense mass in the inferior medial far anterior aspect of the left breast. BI/SCRN MAMM (CAD)W/IRA BILAT IMPRESSION: Benign screening mammogram study. OVERALL FINAL ASSESSMENT BI-RADS 2: BENIGN RECOMMEND ANNUAL MAMMOGRAPHIC SCREENING. RECOMMENDATION: Routine annual follow-up in 1 Year A letter with findings and recommendations will be mailed to the patient. Reading Location: [id number] CC: STRATEGIC PARTNERSHIP MANAGER-C Brooke Rock; Dr. Markus Antonio DO ~ Managing Broker: Signed [facility] SCRN MAMM (CAD)W/IRA BILATo n 03-06-2025 SCRN MAMM (CAD)W/IRA BILAT [facility] Imaging Services [address] [place] [address] SCRN MAMM (CAD)W/IRA BILAT MR#: [id number] Acct: [id number] Name: JAMIE JOHNSON Rep #: [id number] : 1955 F 69 From: Jennifer Arango PCP: Dr. Markus Antonio, DO Status: REG CLI Study: SCRN MAMM (CAD)W/IRA BILAT Date of Exam: 02/13 12/06 Exam# [id number] Ordering Dr: Brooke Rock NP [employer] PARTNERSHIP MANAGER -C EXAM: SCRN MAMM (CAD)W/IRA BILAT DATE: 03/06/2025 CLINICAL HISTORY: F, Age 69 y/o , SCREEN FOR BREAST CANCER BREAST CANCER RISK ASSESSMENT: Has not been calculated TECHNIQUE: SCRN MAMM (CAD)W/IRA BILAT COMPARISON: Prior exam(s) dated 02/19/2024, 01/21/2023, and 01/20/2022. FINDINGS: TISSUE DENSITY: The breast tissue is composed of scattered areas of fibroglandular density. Bilateral Breast Mammographic Findings: There are no suspicious masses, suspicious cluster of microcalcifications , architectural distortion or secondary signs of malignancy identified in either breast. Benign round calcifications are seen in both breasts. Benign-appearing secretory type calcifications are seen in the left breast. There is a stable 3 mm partially obscured isodense mass in the inferior medial far anterior aspect of the left breast. BI/SCRN MAMM (CAD)W/IRA BILAT IMPRESSION: Benign screening mammogram study. OVERALL FINAL ASSESSMENT BI-RADS 2: BENIGN RECOMMEND ANNUAL MAMMOGRAPHIC SCREENING. RECOMMENDATION: Routine annual follow-up in 1 Year A letter with findings and recommendations will be mailed to the patient. Reading Location: [id number] CC: STRATE[employer]IC PARTNERSHIP MANAGER-C Brooke Rock; Dr. Markus Antonio DO Managing Broker: Signed Normal [facility] Bone density reportOrdered B y: Stan Negron on 12-29-2024 Study report Skeletal system DXA [facility] Imaging Services [address] [place] [address] Dexa Bone Density Study MR#: [id number] Acct: [id number] Name: JOHNSONJAMIE L Rep #: [id number] : 1955 F 69 From: Desmond Negron MD PCP: Dr. Markus Antonio DO Status: RE G CLI Study:Dexa Bone Density Study Date of Exam: 12/29/24 Exam# [id number] Ordering Dr: Do crissy Antonio DO PROCEDURE: DEXA BONE DENSITY STUDY 12/29/2024 REASON FOR EXAM: OSTEOPOROSIS F, age 69 y/o . Postmenopausal. TECHNIQUE: DXA scan of the lumbar spine and both hips, using make and model. REFERENCE LINKS: [facility] Adult Positions COMPARISON: Comparison is made with prior study dated October 04, 2019. FINDINGS: BMD and T-SCORES Lumbar spine: 1.091 g/cm2, T-Score 0.4 L1 through L4 Change from prior: Loss of 5.6% Left femoral neck: 0.7 L3 g/cm2, T-Score -1.3 Femoral neck comparison data not recommended for monitoring change. Left total hip: 0.950 g/cm2, T-Score 0.1 Change from prior: Loss of 2.3% Right femoral neck: 0.705 g/cm2, T-Score -1.3 Femoral neck comparison data not recommended for monitoring change. Right total hip: 0.984 g/cm2, T-Score 0.3 Change from prior: Loss of 3.7% Fracture Risk Calculation: FRAX (10-year Fracture Risk) Score: FRAX scores should never be reported in a patient with osteoporosis on DEXA or for any patient that is on bone medication. The patient doesmeet the pharmacological treatment recommendations for prevention of osteoporosis BD/Dexa Bone Density Study IMPRESSION: OSTEOPENIA. Recommend follow-up as clinically warranted. Reading Location: [facility] CC: Dr. Markus Antonio DO ~ Managing Broker: Signed [facility] Dexa Bone Density Studyon Dexa Bone Density Study [facility] Imaging Services [address] [place] [address] Dexa Bone Density Study MR#: [id number] Acct: [id number] Name: JAMIE JOHNSON Rep #: [id number] : 1955 F 69 From: Stan liu MD PCP: Dr. Markus Antonio DO Status: REG CLI Study: Dexa Bone Density Study Date of Exam: 12/29/24 Exam# [id number] Ordering Dr: Markus Antonio DO PROCEDURE: DEXA BONE DENSITY STUDY 12/29/2024 REASON FOR EXAM: OSTEOPOROSIS F, age 69 y/o . Postmenopausal. TECHNIQUE: DXA scan of the lumbar spine and both hips, using make and model. [facility] COMPARISON: Comparison is made with prior study dated October 04, 2019. FINDINGS: BMD and T-SCORES Lumbar spine: 1.091 g/cm2, T-Score 0.4 L1 through L4 Change from prior: Loss of 5.6% Left femoral neck: 0.7 L3 g/cm2, T-Score -1.3 Femoral neck comparison data not recommended for monitoring change. Left total hip: 0.950 g/cm2, T-Score 0.1 Change from prior: Loss of 2.3% Right femoral neck: 0.705 g/cm2, T-Score -1.3 Femoral neck comparison data not recommended for monitoring change. Right total hip: 0.984 g/cm2, T-Score 0.3 Change from prior: Loss of 3.7% Fracture Risk Calculation: FRAX (10-year Fracture Risk) Score: FRAX scores should never be reported in a patient with osteoporosis on DEXA or for any patient that is on bone medication. The patient doesmeet the pharmacological treatment recommendations for prevention of osteoporosis BD/Dexa Bone Density Study IMPRESSION: OSTEOPENIA. Recommend follow-up as clinically warranted. Reading Location: [facility] CC: Dr. Markus Antonio DO Managing Broker: Signed Normal [facility] Anion gap in Serum or Plasma Ordered By: Markus Antonio on 12-20-2024 Anion gap [Moles/Vol] 14 mmol/L 5-15 [facility] BUN/creatinine ratioOrdered By: Markus Antonio on 12-20-2024 Urea nitrogen/Creatinine [Mass ratio] 19.2 mg/mg 10-20 [facility] Bilirubin, totalOrdered By: Markus Antonio on 12-20-2024 Bilirubin [Mass/Vol] 0.33 mg/dL 0.00-1.30 [facility] Calculated very low density lipoprotein (VLDL) cholesterol measurementOrdered By: Markus Antonio on 12-20-2024 Calculated very low density lipoprotein (VLDL) cholesterol measurement 29 mg/dL - [facility] VLDL Cholesterol 29 mg/dL [facility] Carbon dioxide, total [Moles /volume] in Central venous bloodOrdered By: Markus Antonio on 12-20-2024 CO2 [Moles/Vol] 23.6 mmol/L 21.0-32.0 [facility] Chloride assayOrdered By: Do crissy Antonio on 12-20-2024 Chloride [Moles/Vol] 103 mmol/L 98-108 [facility] Comprehensive Metabolic Prof ilon 12-20-2024 Albumin [Mass/Vol] 4.5 g/dL Normal 3.4-4.8 [facility] Comment on above: Performed By: #### L 500.4100, L500.4050 #### [facility] Laboratory [address] [place], [address] Albumin/Globulin [Mass ratio] 1.5 {ratio} Normal 0.9-2.4 [facility] Comment on above: Performed By: #### L 500.4100, L500.4050 #### [facility] Laboratory [address] [place], [address] ALK PHOS 69 U/L Normal 35-104 [facility] Comment on above: Performed By: #### L 500.4100, L500.4050 #### [facility] Laboratory [address] [place], [address] ALT [Catalytic activity/Vol] 45 U/L High <=34 [facility] Comment on above: Performed By: #### L 500.4100, L500.4050 #### [facility] Laboratory [address] [place], [address] AST [Catalytic activity/Vol] 50 U/L High <=31 [facility] Comment on above: Performed By: #### L 500.4100, L500.4050 #### [facility] Laboratory [address] [place], [address] Bilirubin [Mass/Vol] 0.33 mg/dL Normal 0.00-1.30 [facility] Comment on above: Performed By: #### L 500.4100, L500.4050 #### [facility] Laboratory [address] [place], [address] BUN/CRE 19.2 RATIO Normal 10-20 [facility] Comment on above: Performed By: #### L 500.4100, L500.4050 #### [facility] Laboratory [address] [place], [address] Calcium [Mass/Vol] 9.8 mg/dL Normal 7.6-11.0 [facility] Comment on above: Performed By: #### L 500.4100, L500.4050 #### [facility] Laboratory [address] [place], [address] Chloride [Moles/Vol] 103 mmol/L Normal 98-108 [facility] Comment on above: Performed By: #### L 500.4100, L500.4050 #### [facility] [address] [place], [address] CO2 [Moles/Vol] 23.6 mmol/L Normal 21.0-32.0 [facility] Comment on above: Performed By: #### L 500.4100, L500.4050 #### [facility] Laboratory [address] [place], [address] Creatinine [Mass/Vol] 0.71 mg/dL Normal 0.70-1.20 [facility] Comment on above: Performed By: #### L 500.4100, L500.4050 #### [facility] [address] [place], [address] GAP 14 Normal 5-15 [facility] Comment on above: Performed By: #### L 500.4100, L500.4050 #### [facility] Laboratory [address] [place], [address] GFR/1.73 sq M.predicted among non-blacks MDRD (S/P/Bld) [Vol rate/Area] 91 mL/min/{1.73_m2} Normal >60 [facility] Comment on above: Result Comment: mL/m in/1.73m2 CKD-EPI Creatinine Equation (2020) Performed By: #### L 500.4100, L500.4050 #### [facility] Laboratory [address] [place], [address] Globulin (S) [Mass/Vol] 3.1 g/dL Normal 2.2-4.2 [facility] Comment on above: Performed By: #### L 500.4100, L500.4050 #### [facility] Laboratory [address] [place], [address] Glucose [Mass/Vol] 117 mg/dL High 70-99 [facility] Comment on above: Performed By: #### L 500.4100, L500.4050 #### [facility] Laboratory [address] [place], [address] Potassium [Moles/Vol] 4.7 mmol/L Normal 3.3-5.1 [facility] Comment on above: Performed By: #### L 500.4100, L500.4050 #### [facility] Laboratory [address] [place], [address] Sodium [Moles/Vol] 140 mmol/L Normal 133-145 [facility] Comment on above: Performed By: #### L 500.4100, L500.4050 #### [facility] Laboratory [address] [place], [address] T PROT 7.6 g/dL Normal 5.9-8.4 [facility] Comment on above: Performed By: #### L 500.4100, L500.4050 #### [facility] [address] [place], [address] Urea nitrogen [Mass/Vol] 14 mg/dL Normal 4-19 [facility] Comment on above: Performed By: #### L 500.4100, L500.4050 #### [facility] [address] [place], [address] GFR/1.73 sq M.predicted amrita g non-blacks MDRD (S/P/Bld) [Vol rate/Area]Ordered By: Markus Antonio on 12-20-2024 Estimated GFR (MDRD) Non-Af Amer 91 >60 [facility] Comment on above: mL/min/1.73m2 CKD-EP I Creatinine Equation (2020) Glomerular filtration rate ( GFR) estimation/1.73 sq m using serum, plasma, or whole bOrdered By: Markus Antonio on 12-20-2024 GFR/1.73 sq M.predicted among non-blacks MDRD (S/P/Bld) [Vol rate/Area] 91 mL/min/{1.73_m2} >60 [facility] Comment on above: mL/min/1.73m2 CKD-EP I Creatinine Equation (2020) Internal Medicine Office Vis yodit 12-20-2024 Internal Medicine Office Visit [facility] [address] [address] [place] [address] OFFICE VISIT Date of Service: 12/20/24 MR#: [id number] Acct: [id number] Name: JAMIE JOHNSON Rep #: [id number] : 1955 Provider: Dr. Markus holguin, DO Age/Sex: 69/F Location: [facility] Status: Signed Intake Vital Signs 04/18/24 08:57 12/20/24 08:34 Height 5 ft 4 in 5 ft 4 in Weight: 196 lb BMI 33.6 BP 124/72 H Blood Pressure Location Rt brachial Position Sitting Respiration 16 Pulse 68 Pulse Source Monitor Temp 96.4 F L Temp Source Temporal Pulse Oximetry (%) 97 Oxygen Delivery Method room air Intake Visit Reasons: WELLNESS Chief Complaint: Annual physical exam. Counseling Psychologist Required: No Accompanied by: Self Is patient in pain?: No Allergies metaxalone (From Skelaxin) Allergy (Intermediate, Verified 12/20/24 08:26) Hives levofloxacin (From Levaquin) Allergy (Unknown, Verified 12/20/24 08:26) irregular heart rate moxifloxacin (From Avelox) Allergy (Unknown, Verified 12/20/24 08:26) Hives amoxicillin (From Augmentin) Allergy (Verified 12/20/24 08:26) numbness around lips clavulanic acid (From Augmentin) Allergy (Verified 12/20/24 08:26) numbness around lips Medications ???Medication ???Instructions ???Recorded ???Confirmed ???Type cholecalciferol (vitamin D3) 25 25 mcg PO DAILY 01/16/21 12/20/24 History mcg (1,000 unit) capsule timolol 0.25 % eye drops 1 drp ophthalmic (eye) DAILY 04/1812/20/24 History propranolol 20 mg tablet 20 mg PO TID #270 TABLETS 09/08/24 12/20/24 Rx apixaban 2.5 mg tablet (Eliquis) 2.5 mg PO BID 3 months #180 tabs 0 10/11/24 12/20/24 Rx rosuvastatin 5 mg tablet 5 mg PO QHS #90 tabs 12/20/24 0405/08 Rx Have you fallen in the past year?: No Nurse's Note: patient recovering from shingles and chest congestion [facility] Medical History Wears glasses Cancer High cholesterol History of ulceration History of diverticulitis Former smoker History of echocardiogram History of stress test History of pulmonary embolism Pulmonary embolism Hyperlipidemia Surgical History History of renal calculi History of colonoscopy History of hysterectomy History of arthroscopy of right knee History of cardiac cath History of carpal tunnel surgery of right wrist Family History Sister Lung cancer Bladder cancer Social History number of children: 2 current occupational status: retired Smoking Status: Never smoker alcohol intake: never seatbelt use: always do you feel safe at home: Yes additional social history: Raymon HPI HPI Chief Complaint: Annual physical exam. Details: JAMIE JOHNSON, is a 69 F who presents to the office today for an annual physical examination and medication refills. She says she is doing very well. She is recovering from a mild URI that she thinks she picked up from her grandchildren. She needs medications refilled it has been 5 years since she had a bone density test. She does have a mammogram scheduled for February. She needs blood work drawn. Other than occasional musculoskeletal complaints with discomfort into the neck she really has no problems that she complains about. ROS Const Constitutional: No body ache, excessive sweating, fatigue, fever(s), frequent falls, headache(s), snoring, weakness, weight change, sleep problems or change in appetite Eyes Eyes: No blurry vision, change in vision, eye pain or Light sensitivity ENT ENT: No abnormal hearing, ear or mastoid pain, tinnitus, nasal congestion, headache(s), neck pain or sore throat Resp Respiratory: No cough, shortness of breath, snoring or wheezing Cardio Cardiology: No chest pain at rest, chest pain with exertion, excessive sweating, shortness of breath, dyspnea on exertion, lightheadedness, orthopnea or palpitations Gastro GI: No abdominal pain, change in bowel habits, constipation, cramping, diarrhea, nausea/dyspepsia or vomiting Genitourinary-Femal e: No burning urination, painful urination, urinary incontinence, urinary frequency, blood in urine, abnormal periods or pelvic pain Musc Musculoskeletal: No abnormal gait, joint pain, back pain, limited range of motion, neck pain, numbness, stiffness, tingling or Arthritis Skin Skin: No dry skin, redness, lesions, itchy eyes, rash or wounds Neuro Neurology: No abnormal gait, abnormal hearing, abnormal speech, dizziness, weakness, frequent falls, headache(s), memory loss, numbness or tingling Psych Psychiatric: No anxiety, No change in appetite, No depression, No memory loss and No Thoughts of harming yourself/Others Endo En (more content not included)... Normal [facility] LDL calc ser/plasOrdered By: Markus Antonio on 12-20-2024 Cholesterol in LDL [Mass/Vol] 78 mg/dL [facility] Comment on above: Bruaoxvdym=357-087 m g/dL & Higher Jhug=501 mg/dL or greater LDL Cholesterol, Calculated 78 mg/dL [facility] Comment on above: Rpdngtsnkh=629-587 m g/dL & Higher Isxw=209 mg/dL or greater Laboratory - Chemistry and C hemistry - challengeOrdered By: Markus Antonio on 12-20-2024 AST [Catalytic activity/Vol] 50 U/L High <32 [facility] Lipid Profileon 12-20-2024 CHOL:HDL 2.95 Normal [facility] Comment on above: Performed By: #### L 500.4100, L500.4050 #### [facility] [address] [place], [address] Cholesterol [Mass/Vol] 162 mg/dL Normal <=200 [facility] Comment on above: Result Comment: Chol esterol level, Desirable <200 mg/dL Borderline high cholesterol 200-239 mg/dL High cholesterol >=240 mg/dL Recommendations of the NCEP Adult Treatment Panel for the following risk-cutoff thresholds for the [place] population. Performed By: #### L 500.4100, L500.4050 #### [facility] [address] [place], [address] Cholesterol in HDL [Mass/Vol] 55 mg/dL Normal [facility] Comment on above: Result Comment: Stephanie onal Cholesterol Education Program (NCEP) guidelines: <40 mg/dL: Low HDL-cholesterol (major risk factor for CHD) >= 60 mg/dL: High HDL-cholesterol (negative risk factor for CHD) HDL-cholesterol is affected by a number of factors, e.g. smoking, exercise, hormones, sex and age. Performed By: #### L 500.4100, [id number] #### [facility] [address] [place], [address] Cholesterol in LDL [Mass/Vol] 78 mg/dL Normal [facility] Comment on above: Result Comment: Bord byasos=179-776 mg/dL Higher Woef=518 mg/dL or greater Performed By: #### L 500.4100, [id number] #### [facility] [address] [place], [address] Cholesterol in VLDL [Mass/Vol] 29 mg/dL Normal 5-40 [facility] Comment on above: Performed By: #### L 500.4100, [id number] #### [facility] [address] [place], [address] Triglyceride [Mass/Vol] 144 mg/dL Normal [facility] Comment on above: Result Comment: The drugs N-Acetylcysteine and Metamizole may falsely depress this assay. Normal range: <150 mg/dL Borderline High: 150-199 mg/dL High: 200-499 mg/dL Very High: >500 mg/dL Performed By: #### L 500.4100, [id number] #### [facility] [address] [place], [address] Potassium (Unsp spec) [Mass/ Vol]Ordered By: Markus Antonio on 12-20-2024 Potassium [Moles/Vol] 4.7 mmol/L 3.3-5.1 [facility] Potassium measurement (mass/ volume)Ordered By: Markus Antonio on 12-20-2024 Potassium (Unsp spec) [Mass/Vol] 4.7 mmol/L 3.3-5.1 [facility] Screening total cholesterol/ high density lipoprotein (HDL) cholesterol ratioOrdered By: Markus Antonio on 12-20-2024 Cholesterol.total/Alyson sterol in HDL [Mass ratio] 2.95 {ratio} [facility] Serum creatinine measurement (mass/volume)Ordered By: Markus Antonio on 12-20-2024 Creatinine [Mass/Vol] 0.71 mg/dL 0.70-1.20 [facility] Serum globulin measurementOr dered By: Markus Antonio on 12-20-2024 Globulin (S) [Mass/Vol] 3.1 g/dL 2.2-4.2 [facility] Serum glucose measurement (m ass/volume)Ordered By: Markus Antonio on 12-20-2024 Glucose [Mass/Vol] 117 mg/dL High 70-99 [facility] Serum or plasma alanine villegas otransferase (ALT) measurementOrdered By: Markus Antonio on 12-20-2024 ALT [Catalytic activity/Vol] 45 U/L High <35 [facility] Serum or plasma albumin edmundo urement (mass/volume)Ordered By: Markus Antonio on 12-20-2024 Albumin [Mass/Vol] 4.5 g/dL 3.4-4.8 [facility] Serum or plasma albumin/glob ulin mass ratioOrdered By: Markussara Antonio on 12-20-2024 Albumin/Globulin [Mass ratio] 1.5 {ratio} 0.9-2.4 [facility] Serum or plasma alkaline rubén sphatase measurementOrdered By: Markus Antonio on 12-20-2024 ALP [Catalytic activity/Vol] 69 U/L 35-104 [facility] Serum or plasma calcium edmundo urement (mass/volume)Ordered By: Markus Antonio 12-20-2024 Calcium [Mass/Vol] 9.8 mg/dL 7.6-11.0 [facility] Serum or plasma cholesterol in HDL measurement (mass/volume)Ordered By: Markus Antonio 12-20-2024 Cholesterol in HDL [Mass/Vol] 55 mg/dL >40 [facility] Comment on above: National Cholesterol Education Program (NCEP) guidelines:<40 mg/dL: Low HDL-cholesterol (major risk factor for CHD)>= 60 mg/dL: High HDL-cholesterol (negative risk factor for CHD)HDL-cholesterol is affected by a number of factors, e.g. smoking, exercise, hormones, sex and age. Serum or plasma cholesterol measurement (mass/volume)Ordered By: Markus Antonio 12-20-2024 Cholesterol [Mass/Vol] 162 mg/dL <201 [facility] Comment on above: Cholesterol level, D esirable <200 mg/dLBorderline high cholesterol 200-239 mg/dLHigh cholesterol >=240 mg/dLRecommendations of the NCEP Adult Treatment Panel for the following risk-cutoff thresholds for the [place] population. Serum or plasma urea nitroge n measurement (mass/volume)Ordered By: Markus Antonio on 12-20-2024 Urea nitrogen [Mass/Vol] 14 mg/dL 4-19 [facility] Sodium levelOrdered By: Abdirahman sara Paco on 12-20-2024 Sodium [Moles/Vol] 140 mmol/L 133-145 [facility] Total proteinOrdered By: Rocíosarah Antonio on 12-20-2024 Protein [Mass/Vol] 7.6 g/dL 5.9-8.4 [facility] Triglycerides measurementOrd ered By: Markus Antonio on 12-20-2024 Triglyceride [Mass/Vol] 144 mg/dL <199 [facility] Comment on above: The drugs N-Acetylcy steine and Metamizole may falsely depress this assay. Normal range: <150 mg/dLBorderline High: 150-199 mg/dLHigh: 200-499 mg/dLVery High: >500 mg/dL Basophil percentageOrdered B y: Markus Paco on 07-01-2023 Bilirubin [Mass/Vol] 0.50 mg/dL 0.20-1.00 [facility] Comment on above: For patients on eltr ombopag therapy, use of Dimension Eldred TBIL is not recommended. Chloride [Moles/Vol] 105 mmol/L 98-107 [facility] Cholesterol [Mass/Vol] 149 mg/dL <200 [facility] Comment on above: <200 mg/dL Desirable 200-240 mg/dL Borderline >240 mg/dL High Risk Glucose [Mass/Vol] 100 mg/dL 74-106 [facility] Comment on above: Fasting Glucose resu lt from 100 to 125 mg/dL suggests IMPAIRED HOMEOSTASIS per A.D.A. criteria. Potassium [Moles/Vol] 4.4 mmol/L 3.5-5.1 [facility] Protein [Mass/Vol] 7.3 g/dL 6.4-8.2 [facility] Sodium [Moles/Vol] 142 mmol/L 136-145 [facility] Triglyceride [Mass/Vol] 142 mg/dL <199 [facility] Comment on above: The drugs N-Acetylcy steine and Metamizole may falsely depress this assay.Serum Triglycerides Reference Interval Normal <150 mg/dL Borderline high 150 - 199 mg/dL High 200 - 499 mg/dL Very High > or = 500 mg/dL Laboratory - Chemistry and C hemistry - challengeOrdered By: Markus Antonio on 07-01-2023 ALP [Catalytic activity/Vol] 71 U/L 45-117 [facility] ALT [Catalytic activity/Vol] 57 U/L 13-56 [facility] CO2 [Moles/Vol] 29.0 mmol/L 21.0-32.0 [facility] Globulin (S) [Mass/Vol] 3.4 g/dL 2.2-4.2 [facility] Urea nitrogen/Creatinine [Mass ratio] 16.0 mg/mg 10-20 [facility] No Panel InformationOrdered By: Markus Antonio on 07-01-2023 Estimated GFR (MDRD) Amer 98 mL/min >60 [facility] Comment on above: GFR Calc Estimated GFR (MDRD) Non-Af Amer 81 mL/min >60 [facility] Comment on above: Non- GFR Calc Serum or plasma albumin edmundo urement (mass/volume)Ordered By: Markus Antonio on 07-01-2023 Albumin [Mass/Vol] 3.9 g/dL 3.2-5.0 [facility] Serum or plasma albumin/glob ulin mass ratioOrdered By: Markus Antonio on 07-01-2023 Albumin/Globulin [Mass ratio] 1.1 {ratio} 0.9-2.4 [facility] Serum or plasma calcium edmundo urement (mass/volume)Ordered By: Markus Antonio on 07-01-2023 Calcium [Mass/Vol] 9.4 mg/dL 8.5-10.1 [facility] Serum or plasma cholesterol in HDL measurement (mass/volume)Ordered By: Markus Antonio on 07-01-2023 Cholesterol in HDL [Mass/Vol] 67 mg/dL >40 [facility] Comment on above: The drugs N-Acetylcy steine and Metamizole may falsely depress this assay. Reference Range HDL <40 mg/dL Low HDL Cholesterol HDL >or= 60 mg/dL High HDL Cholesterol Serum or plasma cholesterol in VLDL measurement (mass/volume)Ordered By: Markus Antonio on 07-01-2023 Cholesterol in VLDL [Mass/Vol] 28 mg/dL 5-40 [facility] Serum or plasma creatinine m easurement (mass/volume)Ordered By: Markus Antonio on 07-01-2023 Creatinine [Mass/Vol] 0.75 mg/dL 0.55-1.02 [facility] Comment on above: The validity of the calculated GFR & GFRAA in patients over 70 years has not been determined. Clinical correlation is essential. Serum or plasma low density lipoprotein (LDL) cholesterol measurement (mass/volume)Ordered By: Markus Antonio on 07-01-2023 Cholesterol in LDL [Mass/Vol] 54 mg/dL 0-130 [facility] Serum or plasma urea nitroge n measurement (mass/volume)Ordered By: Markussara Antonio on 07-01-2023 Urea nitrogen [Mass/Vol] 12 mg/dL 7-18 [facility] Thin prep Papanicolaou smear with manual screeningOrdered By: Markussara Antonio on 07-01-2023 Thin prep Papanicolaou smear with manual screening 41 U/L 15-37 [facility] Thin prep Papanicolaou smear with manual screening 8 5-15 [facility] Absolute lymphocyte counton 12-25-2021 Lymphocytes Auto (Unsp spec) [#/Vol] 1.72 10*3/uL 0.83-4.51 [facility] Work Phone: Basophil percentageon 2021 Basophils/100 WBC (Bld) 0.4 % 0-1 [facility] Work Phone: Bilirubin [Mass/Vol] 0.50 mg/dL 0.20-1.00 [facility] Work Phone: Comment on above: For patients on eltr ombopag therapy, use of Dimension Eldred TBIL is not recommended. Chloride [Moles/Vol] 108 mmol/L 98-107 [facility] Work Phone: Cholesterol [Mass/Vol] 134 mg/dL <200 [facility] Work Phone: Comment on above: <200 mg/dL Desirable 200-240 mg/dL Borderline >240 mg/dL High Risk Eosinophils/100 WBC (Bld) 1.3 % 0-5 [facility] Work Phone: Glucose [Mass/Vol] 98 mg/dL 74-106 [facility] Work Phone: Neutrophils (Bld) [#/Vol] 3.1 10*3/uL 2.0-7.7 [facility] Work Phone: Neutrophils/100 WBC (Bld) 57.9 % 47-70 [facility] Work Phone: Potassium [Moles/Vol] 3.8 mmol/L 3.5-5.1 [facility] Work Phone: Protein [Mass/Vol] 7.5 g/dL 6.4-8.2 [facility] Work Phone: Sodium [Moles/Vol] 141 mmol/L 136-145 [facility] Work Phone: Triglyceride [Mass/Vol] 135 mg/dL [facility] Work Phone: Comment on above: The drugs N-Acetylcy steine and Metamizole may falsely depress this assay.Serum Triglycerides Reference Interval Normal <150 mg/dL Borderline high 150 - 199 mg/dL High 200 - 499 mg/dL Very High > or = 500 mg/dL WBC (Bld) [#/Vol] 5.4 10*3/uL 4.4-11.0 [facility] Work Phone: Blood erythrocytes count (nu mber/volume)on 12-25-2021 RBC (Bld) [#/Vol] 4.33 10*6/uL 4.2-5.4 [facility] Work Phone: Blood hemoglobin measurement (mass/volume)on 12-25-2021 Hemoglobin (Bld) [Mass/Vol] 14.0 g/dL 12.0-15.0 [facility] Work Phone: Blood lymphocytes/100 leukoc yteson 12-25-2021 Lymphocytes/100 WBC (Bld) 31.9 % 19-41 [facility] Work Phone: Blood monocytes/100 leukocyt eson 12-25-2021 Monocytes/100 WBC (Bld) 8.3 % 0-10 [facility] Work Phone: Blood platelet mean volumeon 12-25-2021 Platelet mean volume (Bld) [Entitic vol] 10.7 fL 6.2-12.0 [facility] Work Phone: Determination of erythrocyte mean corpuscular volume (MCV)on 12-25-2021 MCV (RBC) [Entitic vol] 96.8 fL 81-99 [facility] Work Phone: Hematocrit Auto (Bld) [Volum e fraction]on 12-25-2021 Hematocrit (Bld) [Volume fraction] 41.9 % 37-47 [facility] Work Phone: Laboratory - Chemistry and C hemistry - challengeon 12-25-2021 ALP [Catalytic activity/Vol] 58 U/L 45-117 [facility] Work Phone: ALT [Catalytic activity/Vol] 47 U/L 13-56 [facility] Work Phone: CO2 [Moles/Vol] 30.0 mmol/L 21.0-32.0 [facility] Work Phone: Globulin (S) [Mass/Vol] 3.4 g/dL 2.2-4.2 [facility] Work Phone: Urea nitrogen/Creatinine [Mass ratio] 20.0 mg/mg 10-20 [facility] Work Phone: Laboratory - Hematology and Cell countson 12-25-2021 Erythrocyte distribution width (RBC) [Entitic vol] 45.7 fL 35.1-43.9 [facility] Work Phone: Erythrocyte distribution width (RBC) [Ratio] 12.7 % 11.6-14.6 [facility] Work Phone: Immature granulocytes/100 WBC (Bld) 0.200 % 0.0-0.9 [facility] Work Phone: Comment on above: IG% - Immature Granu locytes (promyelocytes, myelocytes and metamyelocytes) > 1% indicates that a LEFT SHIFT is Present. MCH (RBC) [Entitic mass] 32.3 pg 27.0-32.0 [facility] Work Phone: Nucleated RBC/100 WBC (Bld) [Ratio] 0 % 0-5 [facility] Work Phone: MCHC Auto (RBC) [Mass/Vol]on 12-25-2021 MCHC (RBC) [Mass/Vol] 33.4 g/dL 32-36 [facility] Work Phone: No Panel Informationon 12-25 Estimated GFR (MDRD) Amer 92 mL/min >60 [facility] Work Phone: Comment on above: GFR Calc Estimated GFR (MDRD) Non-Af Amer 76 mL/min >60 [facility] Work Phone: Comment on above: Non- GFR Calc Platelets bldon 12-25-2021 Platelets (Bld) [#/Vol] 269 10*3/uL 150-450 [facility] Work Phone: Serum or plasma albumin edmundo urement (mass/volume)on 12-25-2021 Albumin [Mass/Vol] 4.1 g/dL 3.2-5.0 [facility] Work Phone: Serum or plasma albumin/glob ulin mass ratioon 12-25-2021 Albumin/Globulin [Mass ratio] 1.2 {ratio} 0.9-2.4 [facility] Work Phone: Serum or plasma calcium edmundo urement (mass/volume)on 12-25-2021 Calcium [Mass/Vol] 8.9 mg/dL 8.5-10.1 [facility] Work Phone: Serum or plasma cholesterol in HDL measurement (mass/volume)on 12-25-2021 Cholesterol in HDL [Mass/Vol] 55 mg/dL [facility] Work Phone: Comment on above: The drugs N-Acetylcy steine and Metamizole may falsely depress this assay. Reference Range HDL <40 mg/dL Low HDL Cholesterol HDL >or= 60 mg/dL High HDL Cholesterol Serum or plasma cholesterol in VLDL measurement (mass/volume)on 12-25-2021 Cholesterol in VLDL [Mass/Vol] 27 mg/dL 5-40 [facility] Work Phone: Serum or plasma creatinine m easurement (mass/volume)on 12-25-2021 Creatinine [Mass/Vol] 0.80 mg/dL 0.55-1.02 [facility] Work Phone: Comment on above: The validity of the calculated GFR & GFRAA in patients over 70 years has not been determined. Clinical correlation is essential. Serum or plasma low density lipoprotein (LDL) cholesterol measurement (mass/volume)on 12-25-2021 Cholesterol in LDL [Mass/Vol] 52 mg/dL 0-130 [facility] Work Phone: Serum or plasma urea nitroge n measurement (mass/volume)on 12-25-2021 Urea nitrogen [Mass/Vol] 16 mg/dL 7-18 [facility] Work Phone: Thin prep Papanicolaou smear with manual screeningon 12-25-2021 Thin prep Papanicolaou smear with manual screening 45 U/L 15-37 [facility] Work Phone: Thin prep Papanicolaou smear with manual screening 3 5-15 [facility] Work Phone: PROGRESSon 11-21-2018 Protein mass conc HNO ID: [id number] Author: Te Alexandra Service: ? Author Type: Nurse Practitioner Type: Progress Notes Filed: 11/21/2018 12:10 PM Note Text: Telemedicine Visit - Digital Health Virtual Visit Note Patient seen on [employer] platform. Location of patient: [place] Markus Antonio DO History of Present Illness Jamie Johnson is a 63 year old year old female who presents for the past 4 day(s) with symptoms of Nausea and Diarrhea that are: Constant C/o flu like symptoms Started with a fever, vomiting and diarrhea Vomited stopped , diarrhea persists Diarrhea is watery, green/brown with foul odor Has had about 5 bouts in 24 hours Denies abdominal pain or hematochezia. Reports nausea with eating No current fever. Has a fever x 1 day initially. Current temp 98.8 F Feels nausea with eating. Trying to eat a bland diet-chicken noodle soup, dry toast, dry cereal Sinus symptoms started Thursday. Reports purulent (yellow) nasal congestion with sinus pressure and teeth pain. No cough. No SOB, CISNEROS, chest pain, wheezing. Sinus pressure is constant and moderate. Has taken Advil Sinus and Mucinex for relief Symptoms include:Positive for Fever , Chills/Sweats, Fatigue, Nausea, Emesis, Diarrhea and Headache and Negative for Lethargy, Cough, SOB/ Wheezing, Blood in Stool, Urinary Symptoms, Cramping, Abdominal Pain, Arthralgias, Myalgias, Irritability, Dizziness and Lower leg edema No history of gastrointestinal disease. No known risk factors for parasitic or bacterial infection. Oral intake: decreased appetite, eating bland. Consuming fluids Sick contacts: got sick afterwards Recent travel: No Recent Antibiotic use: No Recent Hospitalization: No Number and description of stool: see above OTC meds/remedies that patient has tried: see above PAST MEDICAL HISTORY Diagnosis Date - HTN (hypertension) - Iron deficiency anemia, unspecified - PMH - PAST MEDICAL HISTORY OF hx of ulcers - PMH - PAST MEDICAL HISTORY OF pulmonary embolism - Thrombophilia (HCC) PAST SURGICAL HISTORY Procedure Laterality Date - LIGATE FALLOPIAN TUBE Tubal ligation - TOTAL ABDOM HYSTERECTOMY right ovary/cervix remain FAMILY HISTORY Problem Relation Age of Onset - Cerebral Embolism Father cerebral hemmorhage - other (mago gehrig's disease [Other]) Mother ulcers - other (ulcers [Other]) Sister - other (ulcers [Other]) Sister - other (Other [Other]) Unknown No breast/assistant general manager/colon cancer - Cancer Sister bladder Social History Socioeconomic History Marital status: Spouse name: New Number of children: 2 Years of education: 12 Highest education level: Not on file Social Needs Financial resource strain: Not on file Food insecurity - worry: Not on file Food insecurity - inability: Not on file Transportation needs - medical: Not on file Transportation needs - non-medical: Not on file Occupational History Not on file Tobacco Use Smoking status: Never Smoker Smokeless tobacco: Never Used Substance and Sexual Activity Alcohol use: No Drug use: No Sexual activity: Yes Partners: Male control/protection: Surgical Comment: Tubal Ligation and Partial Hysterectomy Other Topics Concerns: Not on file Social History Narrative Not on file Current Outpatient Medications: propranolol ER (INDERAL LA) 60 mg 24 hr capsule Take 1 capsule by mouth once daily. apixaban (ELIQUIS) 2.5 mg tab tab(s) Take 1 tablet by mouth twice daily. fluticasone (FLONASE) 50 mcg/actuation nasal spray Use 1-2 Sprays in each nostril once daily. sodium chloride (AYR, OCEAN) 0.65 % nasal spray Use 1 Teaberry in the nose as needed for Cold/Allergy Symptoms for up to 7 days. Brompheniramine-Pse udoeph-DM (BROMFED DM) 2-30-10 mg/5 mL syrup Take 5 mL by mouth four times daily as needed. rosuvastatin calcium(CRESTOR 5 MG TAB) Take one tablet daily. lisinopril(PRINIVIL 10 MG TAB) Take one(1) tablet daily. No current facility-administer ed medications for this visit. ALLERGIES Allergen Reactions - Skelaxin [Metaxalon* Hives Video Exam (Examination performed via Video enabled technology) General appearance: Alert, oriented, pleasant, in NAD :Yes Ill appearing :No Lethargic appearing :No Hydration: Appears Hydrated Oropharynx:Mucus membranes appears moist ; No erythema, edema or exudate Frontal sinus tenderness by self palpation;No Maxillary sinus tenderness by self palpation :Yes Tender cervical adenopathy by self palpation :No Respiratory distress :No Coughing noted :No Skin: Turgor <3 seconds Respiratory distress :No Abdomen inspection: Non tender my self palpation. No mass or bulging reported ASSESSMENT/PLAN: 1. Acute gastroenteritis - ICD9: 558.9, ICD10: K52.9 (primary diagnosis) Discussed etiology and rationale for treatment - Can add OTC Imodium (take as directed on the box) - Clear liquids in frequent, small amounts then advance to BRAT diet (bananas, rice, applesauce, toast). - Avoid dairy products - Handwashing 2. Upper respiratory tract infection, unspecified type - ICD9: 465.9, ICD10: J06.9 - Discussed viral etiology and rationale for treatment. - FLUTICASONE 50 MCG/ACTUATION NASAL SPRAY,SUSPENSION - SODIUM CHLORIDE 0.65 % NASAL SPRAY AEROSOL - Symptomatic treatment with prn analgesia - Supportive care with fluids and rest - Follow up in 3-5 days if symptoms persist or sooner if worsening of symptoms - Red flags discussed for need for in person care - All questions answered Te Alexandra APRN.CNP If you let us know who your primary care provider is, we will send them a notification of today's visit through our electronic medical records system. Since not all providers have access to our notifications, we strongly encourage you to share the following record of today's visit with your primary care provider at your next visit. This will help in providing you the best care. [facility] CNCOon 09-29-2018 CNCO HNO ID: [id number] Author: Mammography Coordinator Service: (none) Author Type: Physician Type: Letter Filed: 09/30/2018 11:31 PM Note Text: September 29, 2018 PID: [id number] Jamie Johnson [address] [place] [address] Dear Ms. Johnson, We are pleased to inform you that the results of your recent breast imaging exam on 09/29/2018 are normal. Your mammogram demonstrates that you have dense breast tissue, which could hide abnormalities. Dense breast tissue, in and of itself, is a relatively common condition. Therefore, this information is not provided to cause undue concern; rather, it is to raise your awareness and promote discussion with your health care provider regarding the presence of dense breast tissue in addition to other risk factors. Early detection of cancer is very important. We also understand recommendations regarding breast cancer screening are controversial. Please discuss with your primary care provider which strategy is best for you and whether a mammogram is right for you. Your imaging studies and report will be kept on file at [facility] as part of your permanent medical record and are available for your continuing care. Thank you for allowing us to help in meeting your health care needs. Sincerely, Dr. Colón Interpreting Radiologist [facility] (Normal over 40) [facility] GERARDO SCREENINGon 09-29-2018 GERARDO SCREENING * * *Final Report* * * DATE OF EXAM: Sep 29 2018 8:30AM BEAR 0581 - [facility] SCREENING / PROCEDURE REASON: Screening * * * * Physician Interpretation * * * * RESULT: #[id number] - [facility] SCREENING BILATERAL DIGITAL SCREENING MAMMOGRAM WITH CAD: 09/29/2018 HISTORY: Screening /Screening Mammogram - patient reports no symptoms /priors available for comparison. RESULT: TECHNIQUE: The study was acquired using full field digital technology and interpreted from soft copy. Current study was also evaluated with a Computer Aided Detection (CAD). Comparison is made to exams dated: 09/01/2017 mammogram, 08/28/2016 mammogram, and 08/27/2015 mammogram - [facility]. The tissue of both breasts is heterogeneously dense. This may lower the sensitivity of mammography. No significant masses, calcifications, or other findings are seen in either breast. There has been no significant interval change. IMPRESSION: There is no mammographic evidence of malignancy. A 1 year screening mammogram is recommended. Tiara Colón M.D., ch/jens:09/29/2018 10:50:02 Dispatcher Bus And Trolley(s): RT Sandra(R)(M), [facility] letter sent: Normal over 40 Mammogram BI-RADS: 1 Negative Multiple national specialty organizations have released breast cancer screening guidelines for women at average risk for developing breast cancer - guidelines that are based on both evidence and opinion, yet differ on when to start and how often to screen for breast cancer. With representation from Breast Imaging, Internal Medicine, Women's Health, Family Medicine, and Medical/Surgical Oncology, the [facility] has carefully reviewed the data and reached the following consensus: 1) All women should engage in shared decision-making with their providers to decide when to start and how often to screen; 2) All women should have the opportunity to start screening mammography at age 40; 3) For women ages 45-55, we recommend annual screening mammograms; 4) For women ages 55 and over, we support both the transition from an annual to a biennial interval if this aligns more with patient's values and preferences, or continuation with annual screening; 5) All women should discuss with their providers when to stop screening mammograms. Managing Broker: Jens Transcribe Date/Time: Sep 29 2018 8:31A Dictated by: TIARA COLÓN MD This examination was interpreted and the report reviewed and electronically signed by: TIARA COLÓN MD on Sep 29 2018 10:50AM EST [id number] [facility] PROGRESSon 09-29-2018 Protein mass conc HNO ID: [id number] Author: Eli Brown Rt Service: (none) Author Type: (none) Type: Progress Notes Filed: 09/29/2018 8:30 AM Note Text: Radiology Service Progress Note PATIENT NAME: Jamie Johnson DATE OF SERVICE: September 29, 2018 TIME: 8:02 AM PATIENT IDENTITY VERIFICATION COMPLETED USING TWO (2) METHODS: Patient confirmed name verbally and Date of . PATIENT GENDER DATA: Female. status: : No status: NO. PATIENT RELEVANT IMPLANT DATA REVIEWED: Not Applicable RADIOLOGY DEPARTMENT: Women's Health nir scr mammogram PERIPHERAL IV DATA: Not applicable SIGNED BY: Eli Brown Rt September 29, 2018 8:02 AM [facility] Office Visiton 04-29-2017 Documentation of current medications (procedure) T Invalid Interpretation Code [facility] Work Phone: Documentation of current medications (procedure) Done Invalid Interpretation Code [facility] Work Phone: Tobacco use CPHS Former smoker Invalid Interpretation Code [facility] Work Phone: Vital Signs Date Time Vital Sign Value Performing Clinician Facility 05-30-2025 09:18-0400 Body height 162.[address] Markus Antonio DO Work Phone: [facility] 05-30-2025 09:15-0400 Body mass index (BMI) [Ratio] 33.7 kg/m2 Dr. Markus Antonio DO Work Phone: [facility] 05-30-2025 09:15-0400 Body weight 89.[address] Markus Antonio DO Work Phone: [facility] 05-30-2025 09:15-0400 Diastolic blood pressure 82 mm[Hg] Dr. Markus Antonio DO Work Phone: [facility] 05-30-2025 09:15-0400 Systolic blood pressure 120 mm[Hg] Dr. Markus Antonio DO Work Phone: [facility] 04-26-2025 07:35-0400 Body height 162.[address] Markus Antonio DO Work Phone: [facility] 04-26-2025 07:35-0400 Body mass index (BMI) [Ratio] 33.6 kg/m2 Dr. Markus Antonio DO Work Phone: [facility] 04-26-2025 07:35-0400 Body temperature 97.4 [degF] Dr. Markus Antonio DO Work Phone: [facility] 04-26-2025 07:35-0400 Body weight 88.[address] Markus Antonio DO Work Phone: [facility] 04-26-2025 07:35-0400 Diastolic blood pressure 66 mm[Hg] Dr. Markus Antonio DO Work Phone: [facility] 04-26-2025 07:35-0400 Heart rate 85 /min Dr. Markus Antonio DO Work Phone: [facility] 04-26-2025 07:35-0400 Respiratory rate 14 /min Dr. Markus Antonio DO Work Phone: [facility] 04-26-2025 07:35-0400 SaO2% (BldA) [Mass fraction] 95 % Dr. aMrkus Antonio DO Work Phone: [facility] 04-26-2025 07:35-0400 Systolic blood pressure 116 mm[Hg] Dr. Markus Antonio DO Work Phone: [facility] 12-20-2024 08:34-0400 Body height 162.[address] Markus Antonio DO Work Phone: [facility] 12-20-2024 08:34-0400 Body mass index (BMI) [Ratio] 33.6 kg/m2 Dr. Markus Antonio DO Work Phone: [facility] 12-20-2024 08:34-0400 Body temperature 96.4 [degF] Dr. Markus Antonio DO Work Phone: [facility] 12-20-2024 08:34-0400 Body weight 88.[address] Markus Antonio DO Work Phone: [facility] 12-20-2024 08:34-0400 Diastolic blood pressure 72 mm[Hg] Dr. Markus Antonio DO Work Phone: [facility] 12-20-2024 08:34-0400 Heart rate 68 /min Dr. Markus Antonio DO Work Phone: [facility] 12-20-2024 08:34-0400 Respiratory rate 16 /min Dr. Markus Antonio DO Work Phone: [facility] 12-20-2024 08:34-0400 SaO2% (BldA) [Mass fraction] 97 % Dr. Markus Antonio DO Work Phone: [facility] 12-20-2024 08:34-0400 Systolic blood pressure 124 mm[Hg] Dr. Markus Antonio DO Work Phone: [facility] 07-01-2023 11:01-0400 Body height 162.[address] Markus Antonio Work Phone: [facility] 07-01-2023 11:01-0400 Body mass index (BMI) [Ratio] 32.5 kg/m2 Dr. Markus Antonio Work Phone: [facility] 07-01-2023 11:01-0400 Body temperature 98.6 [degF] Dr. Markus Antonio Work Phone: [facility] 07-01-2023 11:01-0400 Body weight 86.[address] Markus Antonio Work Phone: [facility] 07-01-2023 11:01-0400 Diastolic blood pressure 84 mm[Hg] Dr. Markus Antonio Work Phone: [facility] 07-01-2023 11:01-0400 Heart rate 68 /min Dr. Markus Antonio Work Phone: [facility] 07-01-2023 11:01-0400 Respiratory rate 16 /min Dr. Markus Antonio Work Phone: [facility] 07-01-2023 11:01-0400 SaO2% (BldA) [Mass fraction] 97 % Dr. Markus Antonio Work Phone: [facility] 07-01-2023 11:01-0400 Systolic blood pressure 122 mm[Hg] Dr. Markus Antonio Work Phone: [facility] 01-07-2023 09:09-0400 Body temperature 97.8 [degF] Dr. Markus Antonio Work Phone: [facility] 01-07-2023 09:09-0400 Diastolic blood pressure 78 mm[Hg] Dr. Markus Antonio Work Phone: [facility] 01-07-2023 09:09-0400 Heart rate 64 /min Dr. Markus Antonio Work Phone: [facility] 01-07-2023 09:09-0400 Respiratory rate 16 /min Dr. Markus Antonio Work Phone: [facility] 01-07-2023 09:09-0400 SaO2% (BldA) [Mass fraction] 97 % Dr. Markus Antonio Work Phone: [facility] 01-07-2023 09:09-0400 Systolic blood pressure 101 mm[Hg] Dr. Markus Antonio Work Phone: [facility] 01-07-2023 07:26-0400 Body height 162.[address] Markus Antonio Work Phone: [facility] 01-07-2023 07:26-0400 Body mass index (BMI) [Ratio] 31.8 kg/m2 Dr. Markus Antonio Work Phone: [facility] 01-07-2023 07:26-0400 Body weight [address] Markus Antonio Work Phone: [facility] 11-27-2022 15:54-0400 Body mass index (BMI) [Ratio] 30.5 kg/m2 Dr. Markus Antonio Work Phone: [facility] 11-27-2022 15:54-0400 Body weight 80.[address] Markus Antonio Work Phone: [facility] 12-25-2021 15:04-0400 Body height 162.[address] Markus Antonio Work Phone: [facility] Work Phone: 12-25-2021 15:04-0400 Body mass index (BMI) [Ratio] 31.4 kg/m2 Dr. Markus Antonio Work Phone: [facility] Work Phone: 12-25-2021 15:04-0400 Body temperature 97.7 [degF] Dr. Markus Antonio Work Phone: [facility] Work Phone: 12-25-2021 15:04-0400 Body weight 83.[address] Markus Antonio Work Phone: [facility] Work Phone: 12-25-2021 15:04-0400 Diastolic blood pressure 72 mm[Hg] Dr. Markus Antonio Work Phone: [facility] Work Phone: 12-25-2021 15:04-0400 Heart rate 80 /min Dr. Markus Antonio Work Phone: [facility] Work Phone: 12-25-2021 15:04-0400 Respiratory rate 12 /min Dr. Markus Antonio Work Phone: [facility] Work Phone: 12-25-2021 15:04-0400 SaO2% (BldA) [Mass fraction] 97 % Dr. Markus Antonio Work Phone: [facility] Work Phone: 12-25-2021 15:04-0400 Systolic blood pressure 114 mm[Hg] Dr. Markus Antonio Work Phone: [facility] Work Phone: 04-29-2017 09:46-0400 BMI (Body Mass Index) 30.04 kg/m2 [facility] Work Phone: 04-29-2017 09:46-0400 Height 162.56 cm [facility] Work Phone: 04-29-2017 09:46-0400 Weight 79.38 kg [facility] Work Phone: Encounters Encounter Date Encounter Type Care Provider Facility Start: 06-22-2025 End: 06-22-2025 Patient encounter procedure BIM NURSE -[facility] Work Phone: Start: 06-22-2025 End: 06-22-[address] Markus Antonio DO Work Phone: -[facility] Start: 05-30-2025 End: 05-30-2025 Patient encounter procedure Brooke Rock NP-C -[facility] Work Phone: Start: 05-30-2025 End: 05-30-2025 Patient encounter status Brooke Rock STRATEGIC PARTNERSHIP MANAGER-C [facility] Start: 05-30-2025 End: 05-30-[address] Markus Antonio DO Work Phone: -[facility] Start: 04-26-2025 End: 04-26-[address] Markus Antonio DO Work Phone: -Laboratory Specimen Start: 04-26-2025 End: 04-26-2025 Patient encounter procedure Nathanael DEL ANGEL -Laboratory Specimen Work Phone: Start: 04-26-2025 End: 04-26-[address] Tamica Gordon MD -[facility] Work Phone: Start: 04-26-2025 End: 04-26-[address] Markus Antonio DO Work Phone: -[place] [facility] Start: 04-26-2025 End: 04-26-2025 ambulatory Nathanael DEL ANGEL Facility:[facility] Start: 03-06-2025 End: 03-06-[address] Markus Antonio DO Work Phone: [facility] Work Phone: Start: 03-06-2025 End: 03-06-2025 Patient encounter procedure Brooke Rock STRATEGIC PARTNERSHIP MANAGER-C -Outpatient Breast Imaging Work Phone: Start: 03-06-2025 End: 03-06-2025 ambulatory Brooke Rock STRATEGIC PARTNERSHIP MANAGER Facility:[facility] Start: 12-29-2024 End: 12-29-[address] Markus Antonio DO Work Phone: [facility] Work Phone: Start: 12-29-2024 End: 12-29-[address] Markus Ortez DO -Outpatient Bone Densitometry Work Phone: Start: 12-29-2024 End: 12-29-2024 ambulatory Markus Antonio Facility:[facility] Start: 12-20-2024 End: 12-20-[address] Markus Ortez DO -[facility] Work Phone: Start: 12-20-2024 End: 12-20-[address] Markus Ortez DO [facility] Start: 12-20-2024 End: 12-20-[address] Markus Antonio DO Work Phone: [facility] Work Phone: Start: 12-20-2024 End: 12-20-2024 ambulatory Markus Antonio Facility:[facility] Start: 07-01-2023 End: 07-01-[address] Markus Antonio Work Phone: [facility] Work Phone: Start: 07-01-2023 End: 07-01-[address] Markus Antonio Work Phone: [facility] Work Phone: Start: 01-21-2023 End: 01-21-[address] Markus Antonio Work Phone: [facility] Work Phone: Start: 01-21-2023 End: 01-21-[address] Markus Antonio Work Phone: [facility]-Outpatient Breast Imaging Start: 01-07-2023 Non-patient / Non-visit Dr. Markus Antonio Work Phone: [facility] Start: 01-07-2023 End: 01-07-2023 Admission to same day surgery center Dr. Markus Antonio Work Phone: [facility]-Endoscopy Start: 11-27-2022 Non-patient / Non-visit Dr. Markus Antonio Work Phone: [facility] Start: 01-20-2022 End: 01-20-[address] Markus Antonio Work Phone: [facility]-Outpatient Breast Imaging Start: 12-25-2021 End: 12-25-[address] Markus Antonio Work Phone: [facility]-Laboratory, [facility] Start: 11-21-2018 End: 11-22-2018 Patient encounter procedure TE ShawHULL SORTER) [facility] Start: 09-29-2018 End: 09-29-2018 Patient encounter procedure [facility] Procedures Date Procedure Procedure Detail Performing Clinician Start: 04-26-2025 Urnls dip stick/tabl et reagent auto microscopy Dr. Markus Antonio DO Work Phone: Start: 04-26-[address] Amado Antonio DO Work Phone: Start: 03-06-2025 Screening mammography Jose Antonio DO Work Phone: Start: 12-29-2024 Dual energy X-ray absorptiometry Dr. Markus Antonio DO Work Phone: Start: 01-21-2023 Screening mammography D r. Markus Brown Work Phone: Start: 01-20-2022 Screening mammography Jose Antonio Work Phone: Plan of Treatment Date Care Activity Detail Author Start: 06-22-2025 [facility] Start: 12-29-2024 DXA Bone [Mass/Area] Bone density [facility] Start: 01-07-2023 Colonoscopy flx dx w/collj spec when pfrmd DIAGNOSTIC COLONOSCOPY [facility] Start: 01-07-2023 Patient discharge [facility] Colonoscopy [facility] Patient referral [facility] Work Phone: [facility] Work Phone: [facility] Immunizations Immunization Date Immunization Notes Care Provider Fa cility 06-29-2024 Seasonal trivalent influenza vaccine, adjuvanted, preservative free Dr. Markus Antonio DO Work Phone: [facility] 08-11-2023 Covid (Spikevax) Dr. Markus Antonio DO Work Phone: [facility] 07-01-2023 influenza, injectabl e, quadrivalent, preservative free Dr. Markus Antonio Work Phone: [facility] 03-06-2023 tetanus toxoid, redu ion diphtheria toxoid, and acellular pertussis vaccine, adsorbed Dr. Markus Antonio Work Phone: [facility] 07-07-2022 influenza, injectabl e, quadrivalent, preservative free Dr. Markus Antonio Work Phone: [facility] 07-07-2022 influenza, seasonal, injectable Dr. Markus Antonio Work Phone: [facility] 06-16-2022 Covid Moderna Bivale nt Booster Dr. Markus Antonio DO Work Phone: [facility] 12-25-2021 pneumococcal vaccine , unspecified formulation Dr. Markus Antonio Work Phone: [facility] Work Phone: 12-25-2021 pneumococcal polysaccharide vaccine, [address] Markus Antonio Work Phone: [facility] 12-19-2021 Covmo (Moderna) Dr. Markus Antonio DO Work Phone: [facility] 07-12-2021 Covid (Moderna) Dr. Markus Antonio DO Work Phone: [facility] 12-03-2020 Covid (Moderna) Dr. Markus Antonio DO Work Phone: [facility] 11-05-2020 Covid (Moderna) Dr. Markus Antonio DO Work Phone: [facility] 05-28-2020 Fluad Quad (65yr up)(PF) 60 mcg (15 mcg x 4)/0.5mL IM syringe (flu vac Dr. Markus Antonio Work Phone: [facility] Work Phone: 07-12-2019 influenza, injectabl e, quadrivalent, preservative free Dr. Markus Antonio Work Phone: [facility] 07-12-2019 influenza, seasonal, injectable Dr. Markus Antonio Work Phone: [facility] 07-12-2019 tetanus toxoid, redu ion diphtheria toxoid, and acellular pertussis vaccine, adsorbed Dr. Markus Antonio Work Phone: [facility] 07-12-2019 diphtheria, tetanus toxoids and acellular pertussis vaccine, unspecified formulation Dr. Markus Antonio Work Phone: [facility] Work Phone: 07-12-2019 Flucelvax Quad 2018- 2019 (PF) (flu vac qs 2019(4 yr up)CD(PF)) 60 mcg (15 mcg x; Translations: [Flucelvax Quad 7540-6815 (PF) (flu vac qs 2019(4 yr up)CD(PF)) 60 mcg (15 mcg x] Dr. Markus Antonio Work Phone: [facility] Work Phone: 06-29-2018 influenza, injectabl e, quadrivalent, preservative free Dr. Markus Antonio Work Phone: [facility] 06-29-2018 influenza, seasonal, injectable Dr. Markus Antonio Work Phone: [facility] 06-29-2018 influenza, seasonal, injectable, preservative free Dr. Markus Antonio DO Work Phone: [facility] 06-29-2018 Afluria Quad 2017-20 19 (PF) (flu vacc quad 2018(5 yr up)-PF) 60 mcg/0.[address] Markus Antonio Work Phone: [facility] Work Phone: 09-24-2017 influenza, injectabl e, quadrivalent, preservative free Dr. Markus Antonio DO Work Phone: [facility] 08-18-2017 pneumococcal polysaccharide vaccine, [address] Markus Antonio DO Work Phone: [facility] 07-26-2014 zoster vaccine, live Dr. Rocío nAtonio DO Work Phone: [facility] Payers Date Payer Category Payer Self-pay [id number] 2024 Private Health Insurance [id number] 2016 Private Health Insurance [id number] Unknown [id number] 2.16.8 [id number] Unknown [id number] 2.16.8 [id number] Unknown [id number] 2.16.8 [id number] Unknown [id number] 2.16.8 [id number] Unknown [id number] 2.16.8 [id number] Unknown [id number] 2.16.8 [id number] Unknown [id number] 2.16.8 [id number] Unknown [id number] 2.16.8 [id number] Social History Date Type Detail Facility Start: 12-25-2021 End: 07-01-2023 Tobacco smoking status MEIS Unknown if ever smoked [facility] Start: 01-16-2021 None [facility] Start: 01-16-2021 Homeless [facility] Start: 01-16-2021 Non-smoker [facility] Start: 1955 Sex Assigned At Female [facility] Start: 10-26-2023 Tobacco smoking status NHIS Never smoked tobacco (finding) [facility] Start: 12-23-2024 End: 01-03-2025 Sex Female (finding) [facility] Sex Female [facility] NEGATED: Highlighted row [facility] Medical Equipment Procedure Code Equipment Code Equipment Origin al Text Equipment Identifier Dates STENT,URETERAL PIGTAIL [id number] FDA Start: 05-27-2019 STENT,URETERAL PIGTAIL [id number] FDA Start: 05-27-2019 STENT,URETERAL PIGTAIL [id number] FDA Start: 05-27-2019 STENT,URETERAL PIGTAIL [id number] FDA Start: 05-27-2019 STENT,URETERAL PIGTAIL [id number] FDA Start: 05-27-2019 STENT,URETERAL PIGTAIL [id number] FDA Start: 05-27-2019 STENT,URETERAL PIGTAIL [id number] FDA Start: 05-27-2019 STENT,URETERAL PIGTAIL [id number] FDA Start: 05-27-2019 STENT,URETERAL PIGTAIL [id number] FDA Start: 05-27-2019 STENT,URETERAL PIGTAIL [id number] FDA Start: 05-27-2019 STENT,URETERAL PIGTAIL [id number] FDA Start: 05-27-2019 Goals Date Patient Goal Desired Activity /State Mental Status Date Assessment Result Facility 01-07-2023 Cognitive function Voice/Name [facility] Work Phone: Evaluation note 04-26-2025 Note Date & Type Note Facility 04-26-2025 Evaluation note Diagnosis Onset Date Resolution Dark urine acute April 26, 2 025 8:23am History of renal calculi acute April 26 8:23am [facility] Work Phone: Evaluation note 04-26-2025 Note Date & Type Note Facility 04-26-2025 Evaluation note Diagnosis Onset Date Resolution Dark urine acute April 26, 2 025 8:23am History of renal calculi acute April 26, 2025 8:23am Encounter for routine gynecological examination noneactive May 30, 2025 9:13am [facility] Work Phone: Evaluation note 12-20-2024 Note Date & Type Note Facility 12-20-2024 Evaluation note Diagnosis Onset Date Resolution Physical exam, routine acute Ap 2024 8:24am Benign essential hypertension chronic December 20, 2024 8:24am Essential tremor chronic December 8:24am Hyperlipidemia chronic December 20, 2024 8:24am Trochanteric bursitis of right hip resolved December 20, 2024 8:24am [facility] Work Phone: Evaluation note Note Date & Type Note Facility Evaluation note Diagnosis Onset Date Benign essential hypertension chronic Hyperlipidemia chronic History of pulmonary embolism resolved [facility] Work Phone: Evaluation note Note Date & Type Note Facility Evaluation note Diagnosis Onset Date Encounter for screening for malignant neoplasm of colon acute [facility] Work Phone: Evaluation note Note Date & Type Note Facility Evaluation note Diagnosis Onset Date Diverticulosis of colon acut e Physical exam, annual acute Sleep disturbance acute Benign essential hypertension chronic Essential tremor chronic Hyperlipidemia chronic [facility] Work Phone: Evaluation note Note Date & Type Note Facility Evaluation note No assessment information availa [facility] Work Phone: Reason for referral (narrative) Note Date & Type Note Facility Reason for referral (narrative) No reason for referral information available [facility] Work Phone: Summary Purpose Family History No Family History Records Found Relationship Condition Age at Onset Recorded Date/T raymundo sister Malignant neoplasm of lung Unknown Malignant neoplasm of urinary bladder Unk nown Advance Directives No Advanced Directives Records Found Advance Directive Response Recorded Date/ Time Living Will No May 23, 019 8:22am Power of Automotive Brake Specialist No May 23, 2019 8:22am Advance Directive Response Recorded Date/ Time Name of Medical Power of Automotive Brake Specialist SPOUSE January 02, 2023 8:41am Living Will Yes January 02, 2023 8:41am Power of Automotive Brake Specialist Yes January 02 8:41am Advance Directive Response Recorded Date/ Time Living Will Yes January 02, 2023 8:41am Power of Automotive Brake Specialist Yes January 02 8:41am Chief Complaint and Reason for Visit Chief Complaint Admit Date WELLNESS December 20, 2024 8:24 am osteoporosis December 29, 2024 9:4 2am Reason for Visit Admit Date Physical exam, routine December 20, 2024 8 :24am Benign essential hypertension December 20, 2024 8:24am Essential tremor December 20, 2024 8:24 am Hyperlipidemia December 20, 2024 8:24 am Trochanteric bursitis of right hip December 20, 2024 8:24am Chief Complaint BP FOLLOW UP Reason for Visit Benign essential hyp ertension Hyperlipidemia History of pulmonary embolism Chief Complaint BP FOLLOW UP SCREENING Reason for Visit Benign essential hyp ertension Hyperlipidemia History of pulmonary embolism Chief Complaint Amb Documentation SCREENING Reason for Visit Encounter for screen ing for malignant neoplasm of colon Chief Complaint Annual Reason for Visit Diverticulosis of [place] Physical exam, annual Sleep disturbance Benign essential hypertension Essential tremor Hyperlipidemia Chief Complaint Admit Date WELLNESS December 20, 2024 8:24 am Chief Complaint Admit Date WELLNESS December 20, 2024 8:24 am osteoporosis December 29, 2024 9:4 2am screen for breast cancer March 06, 2025 7:49am Chief Complaint Admit Date osteoporosis December 29, 2024 9:4 2am screen for breast cancer March 06, 2025 7:49am Blood in urine. History of kidney stones . April 26, 2025 8:23am Chief Complaint Admit Date screen for breast cancer March 06, 2025 7:49am Blood in urine. History of kidney stones . April 26, 2025 8:23am Reason for Visit Admit Date Dark urine April 26, 2025 8: 23am History of renal calculi April 26 8:23am Chief Complaint Admit Date screen for breast cancer March 06, 2025 7:49am Blood in urine. History of kidney stones . April 26, 2025 8:23am Annual (ASSISTANT COOK) May 30, 2025 9:13am Reason for Visit Admit Date Dark urine April 26, 2025 8: 23am History of renal calculi April 26 8:23am Encounter for routine gynecological exam ination May 30, 2025 9:13am Chief Complaint Admit Date screen for breast cancer March 06, 2025 7:49am Blood in urine. History of kidney stones . April 26, 2025 8:23am Annual (ASSISTANT COOK) May 30, 2025 9:13am Flu Shot June 22, 2025 9: 43am Additional Source Comments INFORMATION SOURCE (unrecogn ized section and content) DATE CREATED AUTHOR 11/23/2018 [facility] DATE CREATED AUTHOR AUTHOR'S ORGANIZ ATION 07/01/2025 [place] [facility] Goals (unrecognized section and content) Goals may be documented in a n alternate sectionGoals may be documented in an alternate sectionGoals may be documented in an alternate sectionGoals may be documented in an alternate sectionGoals may be documented in an alternate sectionGoals may be documented in an alternate sectionGoals may be documented in an alternate sectionGoals may be documented in an alternate sectionGoals may be documented in an alternate sectionGoals may be documented in an alternate section Care Teams (unrecognized sec tion and content) Team Status: Active Member Role Status Dates Dr. Markus Antonio , DO Primary Care Provider Active Team Status: Inactive Member Role Status Dates Dr. Markus Antonio , DO Primary Care Pr radha, Attending Provider, Referring Provider Active Team Status: Active Member Role Status Dates Dr. Markus Antonio , DO Primary Care Provider Active Alaina Patel Attending Provider Active Team Status: Active Member Role Status Dates Dr. Markus Antonio , DO Primary Care Provider, Referr ing Provider Active Dr. Chelsey Carrillo MD Attending Provider, Other Pro vider Active Team Status: Inactive Member Role Status Dates Dr. Markus Antonio , DO Primary Care Provider Active [place] STRATEGIC PARTNERSHIP MANAGER, STRATEGIC PARTNERSHIP MANAGER-C Attending Provider, Referring Provider Active Team Status: Inactive Member Role Status Dates Dr. Markus Antonio , DO Primary Care Provider, Referr ing Provider Active Dr. Chelsey Carrillo MD Attending Provider Active Team Status: Inactive Member Role Status Dates Dr. Markus Antonio DO Primary Care Provider Active Start: December 20, 2024 End: December 20, 2024 Dr. Markus Antonio DO Attending Provider Active Start: December 20, 2024 End: December 20, 2024 Dr. Markus Antonio DO Referring Provider Active Start: December 20, 2024 End: December 20, 2024 Team Status: Inactive Member Role Status Dates Dr. Markus Antonio DO Primary Care Provider Active Start: December 20, 2024 End: December 20, 2024 Dr. Markus Antonio DO Attending Provider Active Start: December 20, 2024 End: December 20, 2024 Team Status: Inactive Member Role Status Dates Dr. Markus Antonio DO Primary Care Provider Active Start: December 29, 2024 End: December 29, 2024 Dr. Markus Antonio DO Attending Provider Active Start: December 29, 2024 End: December 29, 2024 Dr. Markus Antonio DO Referring Provider Active Start: December 29, 2024 End: December 29, 2024 Team Status: Inactive Member Role Status Dates Dr. Markus Antonio DO Primary Care Provider Active Start: March 06, 2025 End: March 06, 2025 [place] STRATEGIC PARTNERSHIP MANAGER, STRATEGIC PARTNERSHIP MANAGER-C Attending Provider Active Start: March 06, 2025 End: March 06, 2025 [place] STRATEGIC PARTNERSHIP MANAGER, STRATEGIC PARTNERSHIP MANAGER-C Referring Provider Active Start: March 06, 2025 End: March 06, 2025 Team Status: Active Member Role/Relationship Status Dates Dr. Markus Antonio DO Primary Care Provider Active Team Status: Inactive Member Role/Relationship Status Dates Dr. Markus Antonio DO Primary Care Provider Active Start: December 29, 2024 End: December 29, 2024 Dr. Markus Antonio DO Attending Provider Active Start: December 29, 2024 End: December 29, 2024 Dr. Markus Antonio DO Referring Provider Active Start: December 29, 2024 End: December 29, 2024 Team Status: Inactive Member Role/Relationship Status Dates Dr. Markus Antonio DO Primary Care Provider Active Start: March 06, 2025 End: March 06, 2025 [place] STRATEGIC PARTNERSHIP MANAGER, STRATEGIC PARTNERSHIP MANAGER-C Attending Provider Active Start: March 06, 2025 End: March 06, 2025 [place] STRATEGIC PARTNERSHIP MANAGER, STRATEGIC PARTNERSHIP MANAGER-C Referring Provider Active Start: March 06, 2025 End: March 06, 2025 Team Status: Inactive Member Role/Relationship Status Dates Dr. Markus Antonio DO Primary Care Provider Active Start: April 26, 2025 End: April 26, 2025 Dr. Markus Antonio DO Referring Provider Active Start: April 26, 2025 End: April 26, 2025 Dr. Tamica Gordon MD Attending Provider Active Start: April 26, 2025 End: April 26, 2025 Team Status: Inactive Member Role/Relationship Status Dates Dr. Markus Antonio DO Primary Care Provider Active Start: March 06, 2025 End: March 06, 2025 [place] STRATEGIC PARTNERSHIP MANAGER, STRATEGIC PARTNERSHIP MANAGER-C Attending Provider Active Start: March 06, 2025 End: March 06, 2025 [place] STRATEGIC PARTNERSHIP MANAGER, STRATEGIC PARTNERSHIP MANAGER-C Referring Provider Active Start: March 06, 2025 End: March 06, 2025 Team Status: Inactive Member Role/Relationship Status Dates Dr. Markus Antonio DO Primary Care Provider Active Start: April 26, 2025 End: April 26, 2025 Dr. Markus Antonio DO Referring Provider Active Start: April 26, 2025 End: April 26, 2025 Dr. Tamica Gordon MD Attending Provider Active Start: April 26, 2025 End: April 26, 2025 Team Status: Inactive Member Role/Relationship Status Dates Dr. Markus Antonio DO Primary Care Provider Active Start: April 26, 2025 End: April 26, 2025 MER Fermin Attending Provider Active St art: April 26, 2025 End: April 26, 2025 MER Fermin Referring Provider Active St art: April 26, 2025 End: April 26, 2025 Team Status: Inactive Member Role/Relationship Status Dates Dr. Markus Antonio DO Primary Care Provider Active Start: May 30, 2025 End: May 30, 2025 Dr. Markus Antonio DO Referring Provider Active Start: May 30, 2025 End: May 30, 2025 [place] STRATEGIC PARTNERSHIP MANAGER, STRATEGIC PARTNERSHIP MANAGER-C Attending Provider Active Start: May 30, 2025 End: May 30, 2025 Team Status: Active Member Role/Relationship Status Dates Dr. Markus Antonio DO Primary care physician Active Team Status: Inactive Member Role/Relationship Status Dates Dr. Markus Antonio DO Primary care physician Active Start: March 06, 2025 End: March 06, 2025 [place] STRATEGIC PARTNERSHIP MANAGER, STRATEGIC PARTNERSHIP MANAGER-C Attending physician Active Start: March 06, 2025 End: March 06, 2025 [place] STRATEGIC PARTNERSHIP MANAGER, STRATEGIC PARTNERSHIP MANAGER-C Referring Provider Active Start: March 06, 2025 End: March 06, 2025 Team Status: Inactive Member Role/Relationship Status Dates Dr. Markus Antonio DO Primary care physician Active Start: April 26, 2025 End: April 26, 2025 Dr. Markus Antonio DO Referring Provider Active Start: April 26, 2025 End: April 26, 2025 Dr. Tamica Gordon MD Attending physician Active Start: April 26, 2025 End: April 26, 2025 Team Status: Inactive Member Role/Relationship Status Dates Dr. Markus Antonio DO Primary care physician Active Start: April 26, 2025 End: April 26, 2025 MER Fermin Attending physician Active S tart: April 26, 2025 End: April 26, 2025 MER Fermin Referring Provider Active St art: April 26, 2025 End: April 26, 2025 Team Status: Inactive Member Role/Relationship Status Dates Dr. Markus Antonio DO Primary care physician Active Start: May 30, 2025 End: May 30, 2025 Dr. Markus Antonio DO Referring Provider Active Start: May 30, 2025 End: May 30, 2025 [place] STRATEGIC PARTNERSHIP MANAGER, STRATEGIC PARTNERSHIP MANAGER-C Attending physician Active Start: May 30, 2025 End: May 30, 2025 Team Status: Inactive Member Role/Relationship Status Dates Dr. Markus Antonio DO Primary care physician Active Start: June 22, 2025 End: June 22, 2025 Dr. Markus Antonio DO Referring Provider Active Start: June 22, 2025 End: June 22, 2025 BIM NURSE Attending physician Active Start: O ctober 2024 End: June 22, 2025 FOR RECORDS PERTAINING TO PATIENTS WHO ARE OR HAVE BEEN ENROLLED IN A CHEMICAL DEPENDENCY/SUBSTANCEABUSE PROGRAM, SOME INFORMATION MAY BE OMITTED. This clinical summary was aggregated from multiple sources. Caution should be exercised in using it in the provision of clinical care. This summary normalizes information from multiple sources, and as a consequence, information in this document may materially change the coding, format and clinical context of patient data. In addition, data may be omitted in some cases. CLINICAL DECISIONS SHOULD BE BASED ON THE PRIMARY CLINICAL RECORDS. [facility]. provides no warranty or guarantee of the accuracy or completeness of information in this document.
== END | disposition home or self-care (01) ==
LOC: LABSPEC 17:33
PROVIDERS: PCP Family Medicine; Visit Provider Physician Assistant Surgical
DX: N39.0 Urinary tract infection, site not specified (principal)
CPT/HCPCS: 87086; 87088

== ENCOUNTER → 2025-08-22 | Outpatient (CLI) | payer MEDICARE, SELFPAY ==
--- NOTE | 2025-08-21 09:37 | CYSPIN_PTH ---
PATIENT: JAMIE KEY LOC: [facility] U#:[id number] AGE/SX: 69/F ROOM: RE08/22/[address]: Dr. Emilie Jesus MD : 1955 BED: DIS: 08/22/2025 SPEC #: [id number] RECD: 08/21/25 16:00 STATUS: RUSTAM REQ #: [id number] ADOLFO: 08/21/25 09:[address]: Emilie Jesus DEPT: CYTOLOGY RECD BY: Maurilio Salazar ENTERED: 08/22/25 11:54 SP TYPE: CYSPIN FL OTHR DR: Dr. Agustin Antonio, DO Tissues: A - Urine Procedures: Pap Stain (control) Special Stain Group II Cytospin Fluid HEADER OPERATION: Not noted PRE-OP DIAGNOSIS: Gross hematuria TISSUE SUBMITTED: A- Urine for cytology DIAGNOSIS CYTOLOGY A. Urine, nos: - Few atypical cells, negative for high grade urothelial carcinoma. CYTOLOGY STUDY Slides are reviewed. CYTOLOGY GROSS A. Received is 40 ml of gold-cloudy fluid labeled with the patient's name and and designated per the requisition as urine. Submitted for cytology preparation. Mr 08/22/25 CPT: 43470
== END | disposition home or self-care (01) ==
PROVIDERS: PCP Family Medicine; Referring Provider Urology; Visit Provider Urology
DX: R31.0 Gross hematuria (principal)
CPT/HCPCS: 88108; 88313

== ENCOUNTER → 2025-09-06 | Outpatient (CLI) | payer MEDICARE, SELFPAY ==
--- NOTE | 2025-09-06 06:18 | CT_ITS ---
EXAM: CT Abdomen and Pelvis Without and With Intravenous Contrast CLINICAL INDICATION: GROSS HEMATURIA TECHNIQUE: Axial computed tomography images of the abdomen and pelvis without and with intravenous contrast. This CT exam was performed using one or more of the following dose reduction techniques: automated exposure control, adjustment of the mA and/or kV according to patient size, and/or use of iterative reconstruction technique. CONTRAST: 100 cc Isovue 370 RADIATION DOSE: CTDIvol = 30 mGy, DLP = 4071 mGy-cm COMPARISON: CT Abdomen Pelvis dated 03/29/2019 FINDINGS: LUNG BASES: Unremarkable. No mass. No consolidation. ABDOMEN: LIVER: Fatty infiltration of the liver. GALLBLADDER AND BILE DUCTS: Unremarkable. No calcified stones. No ductal dilation. PANCREAS: Unremarkable. No mass. No ductal dilation. SPLEEN: Unremarkable. No splenomegaly. ADRENALS: Unremarkable. No mass. KIDNEYS AND URETERS: Unremarkable. No stones within either kidney. No hydronephrosis. STOMACH AND BOWEL: Fecal retention in the colon consistent with constipation. Colonic diverticulosis without acute diverticulitis. No obstruction. PELVIS: APPENDIX: No findings to suggest acute appendicitis. BLADDER: Urinary bladder is not fully distended. REPRODUCTIVE: Unremarkable as visualized. ABDOMEN and PELVIS: INTRAPERITONEAL SPACE: Unremarkable. No free air. No significant fluid collection. BONES/JOINTS: Moderate endplate degenerative change and disc degeneration of L5-S1. No acute fracture. No dislocation. SOFT TISSUES: Unremarkable. VASCULATURE: Unremarkable. No abdominal aortic aneurysm. LYMPH NODES: Unremarkable. No enlarged lymph nodes. CT/CT Abd/Pelvis W/WO Contrast IMPRESSION: 1. Fecal retention in the colon consistent with constipation. 2. No obstructive uropathy. 3. Colonic diverticulosis without acute diverticulitis. Reading Location: [id number]
== END | disposition home or self-care (01) ==
LOC: CT 06:18
PROVIDERS: PCP Family Medicine; Referring Provider Urology; Visit Provider Urology
DX: R31.0 Gross hematuria (principal)
CPT/HCPCS: 74178; Q9967